=== PATIENT | male | born 1970 | race Caucasian/White ===

== ENCOUNTER 2017-04-15 19:26 | Emergency (ER) | payer MEDICAID, SELFPAY ==
[2017-04-15 19:40] VITALS: BP 142/67; PULSE 98; RESP 18; TEMP 37.9; O2SAT 100; BMI 29.0
--- NOTE | 2017-04-15 19:47 | HMH.EDUTC ---
[facility] [place] Clinical Impression: URI (upper respiratory infection) Qualifiers: URI type: unspecified URI Qualified Code(s): J06.9 - Acute upper respiratory infection, unspecified Disposition: Home, Self-Care Condition on Discharge: Good Instructions: Sore Throat, DI for Cough -- Adult, Sinusitis Additional Instructions: * Monitor Temp. Tylenol and/or Ibuprofen as needed. ER if fever is no less than 101 despite alternating Tylenol and Ibuprofen * Encourage fluids, water, Gatorade, powerade, pedialyte if infant/toddler/or child * Warm salt water gargles for throat irritation *Warm fluids *Sore throat lozenges *Sleep elevated *humidifier or vaporizer Lots of rest Increase fluids, water, Gatorade, powerade *Flonase 2 sprays each nostril daily but may take 2-3 days to notice improvement with it Follow up IMMEDIATELY for new or worsening of symptoms OR no noticeable improvement over the next 48-72 hours. 911 immediately for any life threatening symptoms such as chest pain or difficulty breathing Prescriptions: Dextromethorphan Polistirex [Delsym] 10 ml PO Q12H PRN #250 neil.er.12h PRN Reason: Cough Time of Disposition: 20:14 Medical Decision Making - Medical Records Medical records reviewed: Yes: I reviewed the patient's medical records. Vital Signs: 04/15/17 19:40 Temperature 100.2 F H Temperature Source Temporal Artery Scan Pulse Rate [Right] 98 H Respiratory Rate 18 Blood Pressure [Right Arm] 142/67 Blood Pressure Mean [Right Arm] 92 Blood Pressure Source [Right Arm] Automatic Cuff Blood Pressure Position [Right Arm] Sitting 02 Sat by Pulse Oximetry 100 Oxygen Delivery Method Room Air - Tacos Inquiry Pt receiving controlled substance: No [place] was queried for this patient: No [facility] [place] - General Stated complaint: fever,cough,kang Mode of Arrival: Ambulatory Source of Information: Patient Limitations: No Limitations Description of Symptoms (Recalled from Triage Doc. by RN): FEVER, COUGH, HEADACHE BEGAN LAST NIGHT HEENT Symptoms (Recalled from RN notes): Yes Resp Symptoms (Recalled from RN notes): No Skin Symptoms (Recalled from RN notes): No MS Symptoms (Recalled from RN notes): No Functional Status (Recalled from RN notes): N - History of Present Illness Provider Complaint: Patient state that he has not been feeling well all day State that he has been running a fever, having sinus pain and pressure along with cough and sore throat State that it has continued to get worse through out the day - Related Data Previous Rx's Medication Instructions Recorded Dextromethorphan Polistirex 10 ml PO Q12H PRN #250 neil.er.12h 04/15/17 [Delsym] Allergies Allergy/AdvReac Type Severity Reaction Status Date / Time No Known Allergies Allergy Verified 04/15/17 19:46 - Worker's Comp Is this a Worker's Comp case?: No [facility] History I have reviewed the patient's past medical history: Yes - *Social History Smoking Status: Current every day smoker Tobacco Type: cigarettes Alcohol Intake: never - Psychiatric History Expresses thoughts of harming self/others: None Suicide Plan Description: No Plan ROS Obtained: Yes All systems reviewed & no additional complaints - Constitutional Constitutional: Reports chills, Reports fever(s) - ENT Ears, Nose, Mouth, and Throat: Reports sinus pain, Reports sinus pressure, Reports sore throat Physical Exam - General General appearance: alert, in no apparent distress - Expanded ENT Exam Nose exam: Present: sinus tenderness, other (Tenderness maxillary sinus) Comment: Throat red, irritated no exudate - Respiratory Respiratory exam: Present: normal lung sounds bilaterally. Absent: respiratory distress - Cardiovascular Cardiovascular exam: Present: regular rate, normal rhythm. Absent: JVD - Abdominal Exam Abdominal exam: Present: soft, normal bowel sounds. Absent: distention, tenderness, guarding - Neurological Exam Neurological ex
[2017-04-15 19:58] LABS: UTC Influenza A Antigen Negative (Negative); UTC Influenza B Antigen Negative (Negative)
--- NOTE | 2017-04-15 20:09 | ED_ITS ---
[facility] [place] Clinical Impression: URI (upper respiratory infection) Qualifiers: URI type: unspecified URI Qualified Code(s): J06.9 - Acute upper respiratory infection, unspecified Disposition: Home, Self-Care Condition on Discharge: Good Instructions: Sore Throat, DI for Cough -- Adult, Sinusitis Additional Instructions: * Monitor Temp. Tylenol and/or Ibuprofen as needed. ER if fever is no less than 101 despite alternating Tylenol and Ibuprofen * Encourage fluids, water, Gatorade, powerade, pedialyte if infant/toddler/or child * Warm salt water gargles for throat irritation *Warm fluids *Sore throat lozenges *Sleep elevated *humidifier or vaporizer Lots of rest Increase fluids, water, Gatorade, powerade *Flonase 2 sprays each nostril daily but may take 2-3 days to notice improvement with it Follow up IMMEDIATELY for new or worsening of symptoms OR no noticeable improvement over the next 48-72 hours. 911 immediately for any life threatening symptoms such as chest pain or difficulty breathing Prescriptions: Dextromethorphan Polistirex [Delsym] 10 ml PO Q12H PRN #250 neil.er.12h PRN Reason: Cough Time of Disposition: 20:14 Medical Decision Making - Medical Records Medical records reviewed: Yes: I reviewed the patient's medical records. Vital Signs: 04/15/17 19:40 Temperature 100.2 F H Temperature Source Temporal Artery Scan Pulse Rate [Right] 98 H Respiratory Rate 18 Blood Pressure [Right Arm] 142/67 Blood Pressure Mean [Right Arm] 92 Blood Pressure Source [Right Arm] Automatic Cuff Blood Pressure Position [Right Arm] Sitting 02 Sat by Pulse Oximetry 100 Oxygen Delivery Method Room Air - [place]os Inquiry Pt receiving controlled substance: No [place]os was queried for this patient: No [facility] [place] HPI - General Stated complaint: fever,cough,kang Mode of Arrival: Ambulatory Source of Information: Patient Limitations: No Limitations Description of Symptoms (Recalled from Triage Doc. by RN): FEVER, COUGH, HEADACHE BEGAN LAST NIGHT HEENT Symptoms (Recalled from RN notes): Yes Resp Symptoms (Recalled from RN notes): No Skin Symptoms (Recalled from RN notes): No MS Symptoms (Recalled from RN notes): No Functional Status (Recalled from RN notes): N - History of Present Illness Provider Complaint: Patient state that he has not been feeling well all day State that he has been running a fever, having sinus pain and pressure along with cough and sore throat State that it has continued to get worse through out the day - Related Data Previous Rx's Medication Instructions Recorded Dextromethorphan Polistirex 10 ml PO Q12H PRN #250 neil.er.12h 04/15/17 [Delsym] Allergies Allergy/AdvReac Type Severity Reaction Status Date / Time No Known Allergies Allergy Verified 04/15/17 19:46 - Worker's Comp Is this a Worker's Comp case?: No [facility] History I have reviewed the patient's past medical history: Yes - *Social History Smoking Status: Current every day smoker Tobacco Type: cigarettes Alcohol Intake: never - Psychiatric History Expresses thoughts of harming self/others: None Suicide Plan Description: No Plan ROS Obtained: Yes All systems reviewed & no additional complaints - Constitutional Constitutional: Reports chills, Reports fever(s) - ENT Ears, Nose, Mouth, and Throat: Reports sinus pain, Report
[2017-04-15 20:21] VITALS: BP 140/70; PULSE 90; RESP 18; TEMP 37.7
== END 2017-04-15 20:29 | disposition home or self-care (01) ==
PROVIDERS: Emergency Provider Nurse Practitioner; Family Provider Internal Medicine Adolescent Medicine
DX: J06.9 Acute upper respiratory infection, unspecified (principal)
CPT/HCPCS: 87804; 96372; 99201

== ENCOUNTER → 2017-05-16 16:35 | Outpatient (CLI) | payer MEDICAID, SELFPAY ==
[2017-05-16 16:38] LABS: Microscopic, Urine URINE MICROSCOPIC (MICROSCOPIC)
--- NOTE | 2017-05-16 16:51 | XR_ITS ---
XR chest 2V HISTORY: ITS.REASON: TOBACCO USE, COUGH ORDERING PHYSICIAN: Phyllis Sanchez PATIENT AGE: 46 years COMPARISON: 02/04/2016 FINDINGS: The cardiomediastinal silhouette and pulmonary vascularity are within normal limits. The lungs are clear without infiltrates, suspicious nodules, or pleural effusions. There are bilateral apical blebs as before. Calcified granuloma is present in the right infrahilar region. No acute bony abnormalities. IMPRESSION: No change with no acute finding. 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
[2017-05-16 17:04] LABS: Appearance,Urine CLEAR (Clear); Bilirubin,Urine Negative (Negative); Blood, Urine Negative (Negative); Color,Urine YELLOW (Yellow); Glucose,Urine (UA) Negative (Negative); Ketones,Urine Negative (Negative); Leukocyte Esterase,Urine Negative (Negative); Nitrate,Urine Negative (Negative); Protein,Urine Negative (Negative); Urobilinogen,Urine 0.2 EU/dl (0.2)
[2017-05-16 17:18] LABS: Alanine Aminotransferase 70 U/L (12-78); Albumin/Globulin Ratio 1.1 (1.1-1.8); Alkaline Phosphatase 78 U/L (46-116); Anion Gap 10.1 mEq/L (5-15); Aspartate Amino Transferase 23 U/L (15-37); Bilirubin,Total 0.4 mg/dL (0.2-1.0); Blood Urea Nitrogen 17 mg/dL (7-18); Calcium 9.1 mg/dL (8.5-10.1); Carbon Dioxide 30 mmol/L (21.0-32.0); Chloride 101 mmol/L (98-107); Creatinine,Serum 1.06 mg/dL (0.70-1.30); Estimated Glomerular Filt Rate 75 ml/min (>60); GFR (African American) 91 ML/MIN (>60); Globulin 3.5 gm/dl (1.3-3.2); Glucose 100 mg/dL (74-106); Potassium 4.1 mmoL/L (3.5-5.1); Sodium 137 mmol/L (136-145); Thyroid Stimulating Hormone 2.54 uIU/ml (0.358-3.740); Total Protein,Serum 7.5 gm/dL (6.4-8.2)
[2017-05-16 18:08] LABS: Basophils # 0.1 K/mm3 (0-0.2); Basophils % 0.5 % (0.1-2.0); Eosinophils # 0.3 K/mm3 (0.0-0.4); Eosinophils % 3.3 % (0.1-12.0); Hematocrit 45.6 % (42.0-52.0); Lymphocytes # 3.1 K/mm3 (0.7-4.5); Lymphocytes % 30.9 K/mm3 (10-50); Mean Corpuscular HGB Conc 32.8 g/dL (31.8-35.4); Mean Corpuscular Hemoglobin 30.6 pg (27.0-31.2); Mean Corpuscular Volume 93.3 fl (80-94); Mean Platelet Volume 7.7 fl (7.4-10.4); Monocytes # 0.4 K/mm3 (0.1-1.0); Monocytes % 3.7 % (1.7-9.3); Neutrophils # 6.2 K/mm3 (1.8-7.8); Neutrophils % 61.6 % (37.0-80.0); Platelet Count 280 K/mm3 (142-424); Red Blood Count 4.89 M/mm3 (4.60-6.20); Red Cell Distribution Width 13.9 % (11.5-17.5); White Blood Count 10.1 K/mm3 (4.8-10.8)
[2017-05-16 19:11] LABS: Squamous Epithelial Cell,Urine Occasional #/hpf (0-5)
== END ==
PROVIDERS: PCP Nurse Practitioner Family; Visit Provider Nurse Practitioner Family
DX: R05 Cough (principal); Z72.0 Tobacco use
CPT/HCPCS: 36415; 71046; 80053; 81001; 84443; 85025

== ENCOUNTER 2017-06-03 15:27 | Emergency (ER) | payer MEDICAID, SELFPAY ==
[2017-06-03 15:42] VITALS: BP 129/87; PULSE 76; RESP 20; TEMP 36.6; O2SAT 98; BMI 29.4
--- NOTE | 2017-06-03 16:06 | HMH.EDUTC ---
[facility] [place] Disposition Clinical Impression: Cough, Tobacco abuse, Laryngitis Disposition: Home, Self-Care Condition on Discharge: Good Instructions: DI for Cough -- Adult, DI for Laryngitis Additional Instructions: * STOP SMOKING!!!! * start antibiotic today. Be sure to complete entire prescription even if feeling better. * Your symptoms are possibly viral. I understand you just had a CXR and choose not to repeat it today. An antibiotic will not make you feel better if this is a virus. Antibiotics are for bacterial infections. Viruses have to run their course with treating the symptoms. Remember that as we discussed, antibiotics do come with side effects and risk including allergic reactions and resistance. Resistance to antibiotics can cause serious complications in the future if there is no antibiotic to treat an infection you have. Carefully consider this before starting antibiotics for symptoms that are likely viral. * Encourage fluids, water, gatorade, powerade, pedialyte if /toddler/child * warm salt water gargles * warm fluids * sore throat lozenges * sleep elevated * humidifier/vaporizer * Vocal rest. Helps keep hoarse voice from getting. * Monitor Temp. Feeling feverish is NOT the same as having a fever. If fever develops, be sure to follow up. * Start steroid today. Helps with inflammation therefore, cough and inflammation. Follow directions on package. Rvwd side effects. Pt reports they have taken them before. Prescriptions: Azithromycin [Z-Freddy 250mg Tab] 250 mg PO UD DOSE PK #6 tab methylPREDNISolone [Medrol] 4 mg PO DIRECTED #1 tab.ds.pk Referrals: Michael Xie MD [Primary Care Provider] - (Follow up IMMEDIATELY for new or worsening symptoms OR no noticeable improvement over the next 72 hours. 911 for difficulty breathing.) Time of Disposition: 16:33 Medical Decision Making - [place]os Inquiry Pt receiving controlled substance: No Vital Signs: 06/03/17 15:42 06/03/17 16:28 Temperature 97.9 F 97.9 F Temperature Source Temporal Artery Scan Pulse Rate 76 Pulse Rate [Brachial] 76 Respiratory Rate 20 20 Blood Pressure 129/87 Blood Pressure [Right Arm] 129/87 Blood Pressure Mean [Right Arm] 101 Blood Pressure Source [Right Arm] Automatic Cuff Blood Pressure Position [Right Arm] Sitting 02 Sat by Pulse Oximetry 98 Oxygen Delivery Method Room Air Room Air - Reevaluation(s) Reevaluation #1: Discussed CXR. Pt refused. 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 Aware necessary to rule out early onset PNA. Pt wanting zpack and steroid regardless of CXR results. Declining CXR today but agrees to follow up for new or worsening symptoms. [facility] [place] HPI - General Stated complaint: SORE THROAT Time Seen by Provider: 06/03/17 16:06 Mode of Arrival: Ambulatory Source of Information: Patient Limitations: No Limitations Description of Symptoms (Recalled from Triage Doc. by RN): SORE THROAT AND HOARSENESS FOR THE LAST 2-3 DAYS. HEENT Symptoms (Recalled from RN notes): Yes Resp Symptoms (Recalled from RN notes): No Skin Symptoms (Recalled from RN notes): No MS Symptoms (Recalled from RN notes): No Functional Status (Recalled from RN notes): NA - History of Present Illness Provider Complaint: c/o sore throat, hoarse voice and cough. Started with cough 2 weeks ago. + tobacco abuse 2ppd. No wheezing or SOA. Sore throat and hoarse voice last 2-3 days. Hard to talk on radio at work due to hoarse voice. No known sick contacts. Hasn't taken or tried anything for symptoms. Has had this before and wanting steroid injection and zpack. - Related Data Previous Rx's Medication Instructions Recorded Azithromycin [Z-Ferddy 250mg Tab] 250 mg PO UD DOSE PK #6 tab 06/03/17 methylPREDNISolone [Medrol] 4 mg PO DIRECTED #1 tab.ds.pk 06/03/17 Allergies Allergy/AdvReac Type Severity Reaction Status Date / Time No Known Allergies Allergy Verified 04/15/17 19:46 - Worker's Comp Is this a Worke
[2017-06-03 16:28] VITALS: BP 129/87; PULSE 76; RESP 20; TEMP 36.6; O2SAT 98
== END 2017-06-03 16:34 | disposition home or self-care (01) ==
PROVIDERS: Emergency Provider Nurse Practitioner Family; Family Provider Internal Medicine Adolescent Medicine; PCP Internal Medicine Adolescent Medicine
DX: J04.0 Acute laryngitis (principal); F17.210 Nicotine dependence, cigarettes, uncomplicated
CPT/HCPCS: 99201

== ENCOUNTER → 2021-06-03 11:06 | Outpatient (CLI) | payer SELFPAY | PROVIDERS: PCP Internal Medicine Adolescent Medicine; Visit Provider Nurse Practitioner Family | DX: Z02.4 Encounter for examination for driving license (principal) ==

== ENCOUNTER 2022-08-22 11:43 | Emergency (ER) | payer OTHER, SELFPAY ==
[2022-08-22 11:50] VITALS: BP 129/77; PULSE 76; RESP 18; TEMP 36.7; O2SAT 98; BMI 27.2
--- NOTE | 2022-08-22 12:07 | EXP.UTC ---
Discharge Plan Disposition Patient Disposition: Home, Self-Care Condition: Good Prescriptions Prescriptions: New azithromycin [Zithromax Z-Freddy] 250 mg tablet See Rx Instructions .ROUTE .COMPLEX 5 Days Qty: 6 0RF Rx Instructions: For 250 mg dose pack: take 500 mg today (day 1), then 250 mg for 4 days (days 2-5) benzonatate 100 mg capsule 100 mg PO TID PRN (Reason: cough) Qty: 30 0RF methylprednisolone [Medrol (Freddy)] 4 mg tablets,dose pack See Rx Instructions .Route .COMPLEX 6 Days Qty: 21 0RF Rx Instructions: taper pack; guaifenesin [Mucinex] 600 mg tablet extended release 12hr 1,200 mg PO BID PRN (Reason: cough) Qty: 20 0RF Referrals Follow up/Referrals: Michael Xie MD [Primary Care Provider] - See instructions Activity Restrictions/Add. Instructions Additional Instructions/Restrictions: Start antibiotic today. Be sure to complete entire prescription even if feeling better Monitor temp. Tylenol every 4 hours as needed and / or ibuprofen every 6 hours as needed ( As long as your primary care physician has told you that it ok to take both. For fever/aches/pains ER if no less than 101 despite Tylenol or Motrin Humidifier/vaporizer or hot steamy shower Mucinex during the day for your cough and cough suppressant only at night. Be sure to drink lots of water. *Tessalon Perles will not cause drowsiness but use at bedtime to help stop cough so that you may get some rest. *Start steroid tomorrow. Helps with inflammation therefore, cough and wheezing. Follow directions on the package. Reviewed side effects. Patient reports taking them before. Follow up IMMEDIATELY for new or worsening of symptoms OR no noticeable improvement over the next 48-72 hours. 911 immediately for any life threatening symptoms such as chest pain or difficulty breathing Clinical Impressions Clinical Impression: Bronchitis Sinusitis Qualifiers: Sinusitis location: unspecified location Chronicity: unspecified Qualified Code(s): J32.9 - Chronic sinusitis, unspecified Instructions Patient Instructions: Sinusitis, Acute Bronchitis, DI for Sinusitis Discharge ED Provider: Misa Lang [facility] General Stated complaint: cough, sore throat Mode of Arrival: Ambulatory Source of Information: Patient Limitations: No Limitations Time Seen by Provider: 08/22/22 11:55 Description of Symptoms (Recalled from Triage Doc. by RN): PATIENT C/O PRODUCTIVE COUGH, SCRATCHY THROAT, AND CHEST CONGESTION X 2 DAYS HEENT Symptoms (Recalled from RN notes): Yes Resp Symptoms (Recalled from RN notes): Yes Skin Symptoms (Recalled from RN notes): No MS Symptoms (Recalled from RN notes): No Functional Status (Recalled from RN notes): WNL History of Present Illness Provider Complaint: Patient states that he has been having sore throat, sinus drainage, cough and chest congestion for several days that is getting worse States that at times he will cough up some mucous and he wanted to come in and get treated before it got too bad Related Data Previous Rx's Medication Instructions Recorded azithromycin 250 mg tablet See Rx Instructions PO .COMPLEX 5 08/22/22 (Zithromax Z-Freddy) days #6 tabs benzonatate 100 mg capsule 100 mg PO TID PRN cough #30 caps 08/22/22 guaifenesin 600 mg tablet, 1,200 mg PO BID PRN cough #20 tabs 08/22/22 extended release 12 hr (Mucinex) methylprednisolone 4 mg tablets in See Rx Instructions .Route 08/22/22 a dose pack (Medrol (Freddy)) .COMPLEX 6 days #21 tabs Allergies Allergy/AdvReac Type Severity Reaction Status Date / Time No Known Allergies Allergy Verified 06/04/19 10:17 Worker's Comp Is this a Worker's Comp case?: No [facility] Disclaimer: The information contained in this section may have been updated after the patient was seen, as this information can be updated by other users. Social History Smoking Status: Current every day smoker tobacco type
[2022-08-22 12:18] VITALS: BP 129/77; PULSE 76; RESP 18; TEMP 36.7; O2SAT 98
== END 2022-08-22 12:26 | disposition home or self-care (01) ==
PROVIDERS: Emergency Provider Nurse Practitioner; PCP Internal Medicine Adolescent Medicine
DX: J40 Bronchitis, not specified as acute or chronic (principal); J32.9 Chronic sinusitis, unspecified; F17.210 Nicotine dependence, cigarettes, uncomplicated
CPT/HCPCS: 96372; 99204; 99212; G0463; J0696

== ENCOUNTER 2022-11-04 08:24 | Emergency (ER) | payer OTHER, SELFPAY ==
[2022-11-04 08:25] VITALS: BP 139/71; PULSE 85; RESP 20; TEMP 37.1; O2SAT 98; BMI 32.4
--- NOTE | 2022-11-04 08:46 | EXP.UTC ---
Discharge Plan Disposition Patient Disposition: Home, Self-Care Condition: Good Prescriptions Prescriptions: New benzonatate [benzonatate] 100 mg capsule 100 mg PO TIDP PRN (Reason: Cough) Qty: 30 0RF methylprednisolone 4 mg Tablets,Dose Pack 4 mg PO DIRECTED Qty: 21 0RF albuterol sulfate [Ventolin HFA] 90 mcg/actuation HFA aerosol inhaler 2 puff inhalation Q6H PRN (Reason: shortness of breath or wheezing) Qty: 6.7 0RF amoxicillin-pot clavulanate 875-125 mg Tablet 1 tab PO Q12H Qty: 20 0RF No Action azithromycin [Zithromax Z-Freddy] 250 mg tablet See Rx Instructions .ROUTE .COMPLEX 5 Days Qty: 6 0RF Rx Instructions: For 250 mg dose pack: take 500 mg today (day 1), then 250 mg for 4 days (days 2-5) benzonatate 100 mg capsule 100 mg PO TID PRN (Reason: cough) Qty: 30 0RF methylprednisolone [Medrol (Freddy)] 4 mg tablets,dose pack See Rx Instructions .Route .COMPLEX 6 Days Qty: 21 0RF Rx Instructions: taper pack; guaifenesin [Mucinex] 600 mg tablet extended release 12hr 1,200 mg PO BID PRN (Reason: cough) Qty: 20 0RF Referrals Follow up/Referrals: Michael Xie MD [Primary Care Provider] - See instructions Activity Restrictions/Add. Instructions Additional Instructions/Restrictions: Drink plenty of fluids. Take tylenol or ibuprofen for pain or fever. Take the medications as directed. Follow up with your regular doctor. GO TO THE ER FOR ANY WORSENING SYMPTOMS Don't start the oral steroids until tomorrow, since you had the shot here today. Clinical Impressions Clinical Impression: Bronchitis, Sinusitis Instructions Patient Instructions: DI for Sinusitis, DI for Acute Bronchitis Discharge ED Provider: Silver Carreon [facility] General Stated complaint: cough,congestion Mode of Arrival: Ambulatory Source of Information: Patient Limitations: No Limitations Time Seen by Provider: 11/04/22 08:45 HEENT Symptoms (Recalled from RN notes): Yes Resp Symptoms (Recalled from RN notes): No Skin Symptoms (Recalled from RN notes): No MS Symptoms (Recalled from RN notes): No Functional Status (Recalled from RN notes): wnl History of Present Illness Provider Complaint: Patient reports cough, congestion and sore throat for 3 days. Related Data Previous Rx's Medication Instructions Recorded azithromycin 250 mg tablet See Rx Instructions PO .COMPLEX 5 08/22/22 (Zithromax Z-Freddy) days #6 tabs benzonatate 100 mg capsule 100 mg PO TID PRN cough #30 caps 08/22/22 guaifenesin 600 mg tablet, 1,200 mg PO BID PRN cough #20 tabs 08/22/22 extended release 12 hr (Mucinex) methylprednisolone 4 mg tablets in See Rx Instructions .Route 08/22/22 a dose pack (Medrol (Freddy)) .COMPLEX 6 days #21 tabs albuterol sulfate 90 mcg/actuation 2 puff inhalation Q6H PRN 11/04/22 aerosol inhaler (Ventolin HFA) shortness of breath or wheezing #6.7 grams amoxicillin 875 mg-potassium 1 tab PO Q12H #20 tabs 11/04/22 clavulanate 125 mg tablet benzonatate 100 mg capsule 100 mg PO TIDP PRN Cough #30 caps 11/04/22 methylprednisolone 4 mg tablets in 4 mg PO DIRECTED #21 tabs 11/04/22 a dose pack Allergies Allergy/AdvReac Type Severity Reaction Status Date / Time No Known Allergies Allergy Verified 06/04/19 10:17 Worker's Comp Is this a Worker's Comp case?: No [facility] Disclaimer: The information contained in this section may have been updated after the patient was seen, as this information can be updated by other users. Social History Smoking Status: Current every day smoker tobacco type: cigarettes packs per day: 2 alcohol intake: current substance use type: denies use current occupational status: employed and other Travel in the last 8 weeks: Inside the [place] ROS Obtained: Yes All systems reviewed & no additional complaints except as documented Constitutional Constitutional: Reports poor appetite Eyes Eyes: Reports system reviewed
[2022-11-04 09:10] VITALS: BP 139/71; PULSE 85; RESP 20; TEMP 37.1; O2SAT 98
== END 2022-11-04 09:11 | disposition home or self-care (01) ==
PROVIDERS: Emergency Provider Nurse Practitioner Family; PCP Internal Medicine Adolescent Medicine
DX: J20.9 Acute bronchitis, unspecified (principal); J01.90 Acute sinusitis, unspecified; F17.210 Nicotine dependence, cigarettes, uncomplicated
CPT/HCPCS: 96372; 99212; 99214; G0463; J0696

== ENCOUNTER 2022-12-20 10:13 | Emergency (ER) | payer OTHER, SELFPAY ==
[2022-12-20 10:14] VITALS: BP 165/61; PULSE 114; RESP 18; TEMP 36.8; O2SAT 98; BMI 28.8
--- NOTE | 2022-12-20 10:33 | EXP.UTC ---
Discharge Plan Disposition Patient Disposition: Home, Self-Care Condition: Good Prescriptions Prescriptions: New cephalexin 500 mg capsule 500 mg PO QID Qty: 40 0RF mupirocin 2 % ointment 1 applic topical TID 7 Days Qty: 15 0RF No Action azithromycin [Zithromax Z-Freddy] 250 mg tablet See Rx Instructions .ROUTE .COMPLEX 5 Days Qty: 6 0RF Rx Instructions: For 250 mg dose pack: take 500 mg today (day 1), then 250 mg for 4 days (days 2-5) benzonatate 100 mg capsule 100 mg PO TID PRN (Reason: cough) Qty: 30 0RF methylprednisolone [Medrol (Freddy)] 4 mg tablets,dose pack See Rx Instructions .Route .COMPLEX 6 Days Qty: 21 0RF Rx Instructions: taper pack; guaifenesin [Mucinex] 600 mg tablet extended release 12hr 1,200 mg PO BID PRN (Reason: cough) Qty: 20 0RF benzonatate [benzonatate] 100 mg capsule 100 mg PO TIDP PRN (Reason: Cough) Qty: 30 0RF methylprednisolone 4 mg Tablets,Dose Pack 4 mg PO DIRECTED Qty: 21 0RF albuterol sulfate [Ventolin HFA] 90 mcg/actuation HFA aerosol inhaler 2 puff inhalation Q6H PRN (Reason: shortness of breath or wheezing) Qty: 6.7 0RF amoxicillin-pot clavulanate 875-125 mg Tablet 1 tab PO Q12H Qty: 20 0RF Referrals Follow up/Referrals: Michael Xie MD [Primary Care Provider] - See instructions Israel Fields MD [Staff Physician] - See instructions Activity Restrictions/Add. Instructions Additional Instructions/Restrictions: Keep the wound clean and dry. Soak in a tub of warm water at least once per day. Watch the wound for signs of infection, such as redness, swelling, drainage, fever. etc. Take tylenol or ibuprofen for pain. Follow up with your regular doctor. Follow up with the urologist (Dr. Fields). I put in a referral but you need to call his office and schedule an appointment. His office phone number will be on this paperwork. GO TO THE ER FOR ANY WORSENING SYMPTOMS OR CONCERNS. recommend you abstain from sexual intercourse until this has healed. Clinical Impressions Clinical Impression: Laceration without foreign body of penis, initial encounter Instructions Patient Instructions: DI for Avulsion Laceration (Not Requiring Sutures), Cephalexin, Mupirocin Discharge ED Provider: Silver Carreon [facility] [place] HPI General Stated complaint: congestion Time Seen by Provider: 12/20/22 10:33 History of Present Illness Provider Complaint: He states that around 10 days ago he was having sex with an area on his foreskin tore. He had bleeding and pain at that time. Since then, he has continued to have sex with his and he states that he has irritated the injury. Related Data Previous Rx's Medication Instructions Recorded azithromycin 250 mg tablet See Rx Instructions PO .COMPLEX 5 08/22/22 (Zithromax Z-Freddy) days #6 tabs benzonatate 100 mg capsule 100 mg PO TID PRN cough #30 caps 08/22/22 guaifenesin 600 mg tablet, 1,200 mg PO BID PRN cough #20 tabs 08/22/22 extended release 12 hr (Mucinex) methylprednisolone 4 mg tablets in See Rx Instructions .Route 08/22/22 a dose pack (Medrol (Freddy)) .COMPLEX 6 days #21 tabs albuterol sulfate 90 mcg/actuation 2 puff inhalation Q6H PRN 11/04/22 aerosol inhaler (Ventolin HFA) shortness of breath or wheezing #6.7 grams amoxicillin 875 mg-potassium 1 tab PO Q12H #20 tabs 11/04/22 clavulanate 125 mg tablet benzonatate 100 mg capsule 100 mg PO TIDP PRN Cough #30 caps 11/04/22 methylprednisolone 4 mg tablets in 4 mg PO DIRECTED #21 tabs 11/04/22 a dose pack cephalexin 500 mg capsule 500 mg PO QID #40 caps 12/20/22 mupirocin 2 % topical ointment 1 applic topical TID 7 days #15 12/20/22 grams Allergies Allergy/AdvReac Type Severity Reaction Status Date / Time No Known Allergies Allergy Verified 12/20/22 10:52 [facility] Disclaimer: The information contained in this section may have been updated after the patient was seen, as this information c
[2022-12-20 11:15] VITALS: BP 165/61; PULSE 114; RESP 18; TEMP 36.8; O2SAT 98
== END 2022-12-20 11:15 | disposition home or self-care (01) ==
PROVIDERS: Emergency Provider Nurse Practitioner Family; PCP Internal Medicine Adolescent Medicine
DX: S31.21XA Laceration without foreign body of penis, initial encounter (principal); F17.210 Nicotine dependence, cigarettes, uncomplicated; X50.0XXA Overexertion from strenuous movement or load, initial encounter
CPT/HCPCS: 99212; 99214; G0463

== ENCOUNTER 2023-05-31 12:39 | Outpatient (CLI) | payer SELFPAY | END 2023-05-31 13:23 | disposition home or self-care (01) | PROVIDERS: PCP Nurse Practitioner Family; Visit Provider Nurse Practitioner Family | DX: Z02.4 Encounter for examination for driving license (principal) ==

== ENCOUNTER 2023-12-28 22:02 | Emergency (ER) | payer OTHER, SELFPAY ==
[2023-12-28 22:02] VITALS: BP 108/70; PULSE 90; RESP 20; TEMP 37.2; O2SAT 95; BMI 27.7
--- NOTE | 2023-12-28 22:11 | CT_ITS ---
PROCEDURE INFORMATION: Exam: CT Head Without Contrast Exam date and time: 12/28/2023 10:44 PM Age: 53 years old Clinical indication: Pain; Headache; Prior surgery; Surgery date: <1 month; Surgery type: Patient states he had a tumor removed from brain 2 weeks ago TECHNIQUE: Imaging protocol: Computed tomography of the head without contrast. Radiation optimization: All CT scans at this facility use at least one of these dose optimization techniques: automated exposure control; mA and/or kV adjustment per patient size (includes targeted exams where dose is matched to clinical indication); or iterative reconstruction. COMPARISON: No relevant prior studies available. FINDINGS: Brain: Normal. No hemorrhage. Unremarkable white matter. No mass effect. A 2.5 x 1.9 x 2.3 cm CSF density collection noted in the posteroinferior medial left cerebellum just under the craniotomy site compatible with resection cavity. Associated mild edema of the adjacent central left cerebellum. Cerebral ventricles: No ventriculomegaly. Paranasal sinuses: Visualized sinuses are unremarkable. No fluid levels. Mastoid air cells: Visualized mastoid air cells are well aerated. Bones: A midline suboccipital craniotomy noted. Soft tissues: Unremarkable. IMPRESSION: 1. Postsurgical changes with suboccipital craniotomy and resection cavity of the inferior medial left cerebellum. Associated mild edema in the left cerebellum may be related to the recent surgery and/or residual from the recently excised tumor. 2. No other acute findings.
--- NOTE | 2023-12-28 22:20 | HMH.EDGENADL ---
Discharge Plan Disposition Patient Disposition: Home, Self-Care Prescriptions Prescriptions: New promethazine 25 mg tablet 25 mg PO Q6H PRN (Reason: nausea and vomiting) Qty: 20 0RF No Action buspirone 10 mg tablet 10 mg PO BID Qty: 60 2RF vilazodone 40 mg tablet See Rx Instructions .ROUTE .COMPLEX Qty: 30 3RF Dose Instruction: Take 1 tablet by mouth once daily with food Rx Instructions: Take 1 tablet by mouth once daily with food albuterol sulfate [Ventolin HFA] 90 mcg/actuation HFA aerosol inhaler 2 puff inhalation Q6H PRN (Reason: shortness of breath or wheezing) Qty: 6.7 0RF dexamethasone 2 mg tablet 2 mg PO DIRECTED pantoprazole 40 mg tablet,delayed release (DR/EC) 40 mg PO DAILY nicotine 21 mg/24 hr patch 24 hour 21 mg transdermal DAILY bisacodyl 5 mg tablet,delayed release (DR/EC) 5 mg PO DAILY polyethylene glycol 3350 17 gram/dose powder 17 g PO DAILY scopolamine base 1 mg over 3 days patch 3 day 1 mg transdermal Q3D ondansetron 4 mg tablet,disintegrating 4 mg translingual Q6HP PRN (Reason: Nausea And Vomiting) oxycodone 5 mg tablet 5 mg PO Q6HP PRN (Reason: Pain) vilazodone 40 mg tablet 40 mg PO DAILY Referrals Follow up/Referrals: Provider,Referral, MD [Referring] - See instructions Activity Restrictions/Add. Instructions Additional Instructions/Restrictions: Please organize all of your medications into a daily pill dispenser and take them every day as prescribed. I wrote you additional Phenergan to take as needed for nausea. Please follow-up with your primary care provider. Please return to the emergency department if you develop any new or worsening symptoms or become concerned for your health. Clinical Impressions Clinical Impression: Headache, Nausea & vomiting Instructions Patient Instructions: DI for Diarrhea and Traveler's Diarrhea -- Adult, DI for Nausea -- Adult, DI for Headache Print Language Print Language: [place] Citizen Discharge ED Provider: Abdirizak Chavis General Adult HPI <Marge Ferrell (ED), SCIENTIFIC SPECIALIST - Last Filed: 12/28/23 22:27> General Chief complaint: Nausea/Vomiting/Diarrhea Stated complaint: Abdominal Pain Time Seen by Provider: 12/28/23 22:10 History of Present Illness HPI narrative: This is 53-year-old male who arrives to the ED via EMS from [place] [facility]. Patient with complaint of nausea, vomiting and headache since this morning. He had brain surgery approximately 2 weeks ago at . Patient was diagnosed with right upper lobe mass with mets to his brain. He had a left craniotomy at . He got out yesterday. He was reportedly placed on [facility] records still vomiting with coffee-ground emesis and having continuous nausea and vomiting but insisted upon going home. GI was consulted at . Patient told staff that he was unaware that he had pain meds or nausea meds at home. The medic on scene who picked him up from [facility] reported that patient had a gun on scene and he and his family were argumentative at the least. Family is reportedly upset with patient and not coming to the hospital. Patient has told EMS staff that he is not returning to for any recent ever again. Patient denies pain anywhere other than his head. He is having nausea and vomiting. Related Data Home Medications ?Medication ?Instructions ?Recorded ?Confirmed bisacodyl 5 mg tablet,delayed 5 mg PO DAILY 12/29/23 12/29/23 release dexamethasone 2 mg tablet 2 mg PO DIRECTED 12/29/23 12/29/23 nicotine 21 mg/24 hr daily 21 mg transdermal DAILY 12/29/23 12/29/23 transdermal patch ondansetron 4 mg disintegrating 4 mg translingual Q6HP PRN Nausea 12/29/23 12/29/23 tablet And Vomiting oxycodone 5 mg tablet 5 mg PO Q6HP PRN Pain 12/29/23 12/29/23 pantoprazole 40 mg tablet,delayed 40 mg PO DAILY gi 12/29/23 12/29/23 release polyethylene glycol 3350 17 17 g PO DAILY 12/29/23 12/29/23 gram/dose oral powder scopolamine base 1 mg over 3 days 1 mg transdermal Q3D 12/29/23 12/29/23 transdermal patch vilazodone 40 mg tablet 40 mg PO DAILY 12/29/23 12/29/23 Previous Rx's ?Medication ?Instructions ?Recorded albuterol sulfate 90 mcg/actuation 2 puff inhalation Q6H PRN 11/04/22 aerosol inhaler (Ventolin HFA) shortness of breath or wheezing #6.7 grams vilazodone 40 mg tablet See Rx Instructions .Route 10/10/23 .COMPLEX #30 tabs buspirone 10 mg tablet 10 mg PO BID #60 tabs 10/25/23 promethazine 25 mg tablet 25 mg PO Q6H PRN nausea and 12/29/23 vomiting #20 tabs Allergies Allergy/AdvReac Type Severity Reaction Status Date / Time No Known Allergies Allergy Verified 11/10/23 14:04 PFSH <Marge Ferrell (ED), SCIENTIFIC SPECIALIST - Last Filed: 12/28/23 22:27> PFSH Disclaimer: The information contained in this section may have been updated after the patient was seen, as this information can be updated by other users. Medical History (Updated 12/29/23 @ 00:16 by Abdirizak Chavis MD) Major depressive disorder Generalized anxiety disorder Surgical History (Updated 04/11/23 @ 13:30 by Araseli William APRN) History of appendectomy Social History (Updated 04/11/23 @ 13:29 by Araseli William APRN) Smoking Status: Never smoker second hand exposure: No alcohol intake: never counseling given: No substance use type: denies use counseling given: No current occupational status: employed and other Travel in the last 8 weeks: Inside the [facility] adopted: No caregiver/support person: Yes foster care: No household members: children housing: house lives independently: Yes marital status: legally number of children: 3 number of grandchildren: 0 education level: high school Hx Recent Travel: No sexually active: Yes caffeine: Yes physical activity: none working smoke detector in home: Yes fire extinguisher in home: Yes carbon monox detector in home: Yes firearms in home: Yes firearms unloaded and locked: Yes do you feel safe at home: Yes victim of physical abuse: No victim of emotional abuse: No victim of sexual abuse: No would you like helpful sources: No Other Medical History Have you received the Flu Vaccine for this season: No Have you received the Pneumonia Vaccine: No <Marge Ferrell (ED), SCIENTIFIC SPECIALIST - Last Filed: 12/28/23 22:27> ROS Obtained: Yes Systems reviewed as appropriate & no additional complaints except as documented Constitutional Constitutional: Reports as per HPI Physical Exam <Marge Ferrell (ED), SCIENTIFIC SPECIALIST - Last Filed: 12/28/23 22:27> General General appearance: alert, anxious and in distress (Nauseous with headache) Head Head exam: other (Patient has mohit present in the back of his head from his brain surgery) Eye Eye exam: Present normal appearance, PERRL and EOMI ENT ENT exam: Present normal oropharynx and mucous membranes moist Neck Neck exam: Present trachea midline Respiratory Respiratory exam: Present normal lung sounds bilaterally Cardiovascular Cardiovascular exam: Present regular rate, tachycardia, normal heart sounds, +S1 and +S2 Abdominal Exam Abdominal exam: Present soft and normal bowel sounds Abdominal tenderness: Present epigastrium Extremities Exam Extremities exam: Present normal inspection, full ROM and normal capillary refill Neurological Exam Neurological exam: Present oriented X3 Psychiatric Psychiatric exam: Present normal affect Skin Skin exam: Present warm, dry and intact Medical Decision Making <Marge Ferrell (ED), SCIENTIFIC SPECIALIST - Last Filed: 12/28/23 22:27> Medical Records Screening: Per USPSTF and CDC recommendations, given the prevalence of disease in our region, it is our hospital?s policy to screen for HIV and viral Hepatitis for all patients aged 18 and over and those with ongoing risk factors. Vital Signs: 12/28/23 22:02 12/28/23 23:04 12/29/23 00:17 Temperature 99.0 F 98.8 F Temperature Source Oral Oral Pulse Rate 70 72 Pulse Rate [Right] 90 Respiratory Rate 20 18 Blood Pressure 111/50 L 115/59 L Blood Pressure [Left Arm] 108/70 L Blood Pressure Mean 80 Blood Pressure Mean [Left Arm] 82 Blood Pressure Source [Left Arm] Automatic Cuff 02 Sat by Pulse Oximetry 95 95 Oxygen Delivery Method Room Air Room Air Room Air Lab Data Lab Results 12/28/23 22:05: WBC 20.6 H*, RBC 5.98, Hgb 16.6, Hct 49.8, MCV 83.2, MCH 27.8, MCHC 33.4, RDW 15.6, Plt Count 347, MPV 7.5, Neut % (Auto) 74.5, Lymph % (Auto) 18.8, Sevier % (Auto) 5.3, Eos % (Auto) 0.5, Baso % (Auto) 0.8, Neut # (Auto) 15.3 H, Lymph # (Auto) 3.9, Sevier # (Auto) 1.1 H, Eos # (Auto) 0.1, Baso # (Auto) 0.2, Total Counted 100, Neutrophils % (Manual) 73, Lymphocytes % (Manual) 19, Monocytes % (Manual) 7, Eosinophils % (Manual) 1, Platelet Estimate Normal, Microcytosis 2+, PT 11.3, INR 1.01, APTT 22.6 L, Sodium 136, Potassium 3.8, Chloride 103, Carbon Dioxide 26, Anion Gap 10.8, BUN 26 H, Creatinine 1.00, Estimated GFR 78, Est GFR ( Amer) 95, Glucose 98, Calcium 9.2, Magnesium 1.9, Total Bilirubin 1.1, AST 46, ALT 50, Alkaline Phosphatase 45, Total Protein 6.7, Albumin 3.9, Globulin 2.8, Albumin/Globulin Ratio 1.4 12/28/23 22:05 12/28/23 22:05 Orders (Tests/Meds): ED MEDICATIONS Discontinued Medications Generic Name Dose Route Start Last Admin Trade Name Freq PRN Reason Stop Dose Admin Acetaminophen 1,000 mg 12/28/23 23:02 12/28/23 23:14 Acetaminophen 1,000mg/100ml Vial IV 12/28/23 23:03 1,000 mg ONCE ONE Administration Ketorolac Tromethamine 30 mg 12/28/23 23:02 12/28/23 23:14 Ketorolac 30mg/Ml Vial IV 12/28/23 23:03 30 mg ONCE ONE Administration Pantoprazole Sodium 40 mg 12/28/23 22:19 12/28/23 22:44 Pantoprazole 40mg Vial IV 12/28/23 22:20 40 mg ONCE ONE Administration Promethazine HCl 25 mg 12/28/23 22:16 12/28/23 22:44 Promethazine Hcl 25mg/Ml 1ml Vial IV 12/28/23 22:17 25 mg ONCE ONE Administration Sodium Chloride 25 ml 12/28/23 22:16 12/28/23 22:44 Sodium Chloride 0.9% 25ml Bag IV 12/28/23 22:17 25 ml ONCE ONE Administration Sodium Chloride 10 ml 12/28/23 22:19 12/28/23 22:44 Sodium Chloride 0.9% 10ml Vial IV 01/27/24 22:18 10 ml NEEDED PRN Administration dilute protonix ORDERS Category Date Time Status CT head/brain wo con Stat Cat Scan 12/28/23 22:11 Completed Activated Partial Thrombo Time Stat Lab 12/28/23 22:05 Completed CBC w/Auto Diff [Complete Blood Count Auto Diff] Stat Lab 12/28/23 22:05 Completed Comprehensive Metabolic Panel Stat Lab 12/28/23 22:05 Completed Drug Screen,Urine Stat Lab 12/28/23 22:14 Ordered HIV (1&2) Antibody Rapid Stat Lab 12/28/23 22:05 Received Hep C Ab with Reflex to RNA Stat Lab 12/28/23 22:05 Received Lactic Acid Stat Lab 12/28/23 22:11 Ordered Magnesium Stat Lab 12/28/23 22:05 Completed Prothrombin Time INR Stat Lab 12/28/23 22:05 Completed ECG Request Stat Y 12/28/23 22:14 Ordered <Fredy Hazel MD - Last Filed: 12/28/23 23:40> [place] Inquiry Pt receiving controlled substance: No Vital Signs: 12/28/23 22:02 12/28/23 23:04 12/29/23 00:17 Temperature 99.0 F 98.8 F Temperature Source Oral Oral Pulse Rate 70 72 Pulse Rate [Right] 90 Respiratory Rate 20 18 Blood Pressure 111/50 L 115/59 L Blood Pressure [Left Arm] 108/70 L Blood Pressure Mean 80 Blood Pressure Mean [Left Arm] 82 Blood Pressure Source [Left Arm] Automatic Cuff 02 Sat by Pulse Oximetry 95 95 Oxygen Delivery Method Room Air Room Air Room Air Lab Data Lab Results 12/28/23 22:05: WBC 20.6 H*, RBC 5.98, Hgb 16.6, Hct 49.8, MCV 83.2, MCH 27.8, MCHC 33.4, RDW 15.6, Plt Count 347, MPV 7.5, Neut % (Auto) 74.5, Lymph % (Auto) 18.8, Sevier % (Auto) 5.3, Eos % (Auto) 0.5, Baso % (Auto) 0.8, Neut # (Auto) 15.3 H, Lymph # (Auto) 3.9, Sevier # (Auto) 1.1 H, Eos # (Auto) 0.1, Baso # (Auto) 0.2, Total Counted 100, Neutrophils % (Manual) 73, Lymphocytes % (Manual) 19, Monocytes % (Manual) 7, Eosinophils % (Manual) 1, Platelet Estimate Normal, Microcytosis 2+, PT 11.3, INR 1.01, APTT 22.6 L, Sodium 136, Potassium 3.8, Chloride 103, Carbon Dioxide 26, Anion Gap 10.8, BUN 26 H, Creatinine 1.00, Estimated GFR 78, Est GFR ( Amer) 95, Glucose 98, Calcium 9.2, Magnesium 1.9, Total Bilirubin 1.1, AST 46, ALT 50, Alkaline Phosphatase 45, Total Protein 6.7, Albumin 3.9, Globulin 2.8, Albumin/Globulin Ratio 1.4 Orders (Tests/Meds): ED MEDICATIONS Discontinued Medications Generic Name Dose Route Start Last Admin Trade Name Freq PRN Reason Stop Dose Admin Acetaminophen 1,000 mg 12/28/23 23:02 12/28/23 23:14 Acetaminophen 1,000mg/100ml Vial IV 12/28/23 23:03 1,000 mg ONCE ONE Administration Ketorolac Tromethamine 30 mg 12/28/23 23:02 12/28/23 23:14 Ketorolac 30mg/Ml Vial IV 12/28/23 23:03 30 mg ONCE ONE Administration Pantoprazole Sodium 40 mg 12/28/23 22:19 12/28/23 22:44 Pantoprazole 40mg Vial IV 12/28/23 22:20 40 mg ONCE ONE Administration Promethazine HCl 25 mg 12/28/23 22:16 12/28/23 22:44 Promethazine Hcl 25mg/Ml 1ml Vial IV 12/28/23 22:17 25 mg ONCE ONE Administration Sodium Chloride 25 ml 12/28/23 22:16 12/28/23 22:44 Sodium Chloride 0.9% 25ml Bag IV 12/28/23 22:17 25 ml ONCE ONE Administration Sodium Chloride 10 ml 12/28/23 22:19 12/28/23 22:44 Sodium Chloride 0.9% 10ml Vial IV 01/27/24 22:18 10 ml NEEDED PRN Administration dilute protonix ORDERS Category Date Time Status CT head/brain wo con Stat Cat Scan 12/28/23 22:11 Completed Activated Partial Thrombo Time Stat Lab 12/28/23 22:05 Completed CBC w/Auto Diff [Complete Blood Count Auto Diff] Stat Lab 12/28/23 22:05 Completed Comprehensive Metabolic Panel Stat Lab 12/28/23 22:05 Completed Drug Screen,Urine Stat Lab 12/28/23 22:14 Ordered HIV (1&2) Antibody Rapid Stat Lab 12/28/23 22:05 Received Hep C Ab with Reflex to RNA Stat Lab 12/28/23 22:05 Received Lactic Acid Stat Lab 12/28/23 22:11 Ordered Magnesium Stat Lab 12/28/23 22:05 Completed Prothrombin Time INR Stat Lab 12/28/23 22:05 Completed ECG Request Stat Y 12/28/23 22:14 Ordered Medical Decision Narrative: Sam Titus is a 53-year-old male with a 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 Per EMS, patient was agitated with family and had a gun on scene. They stated that patient was not agitated and route and patient is calm on arrival. On arrival, patient is hemodynamically stable, afebrile, breathing comfortably on room air. Patient is alert and oriented, although intermittently seems mildly confused. He is complaining of nausea and vomiting. Discharge summary from was reviewed and patient was discharged yesterday after being persistent that he wanted to go home, however he was still receiving IV pain medications at that time due to uncontrolled pain. He was also continued to have nausea and vomiting according to the note. He was sent home with oxycodone and Zofran. Patient also recently finished a steroid taper. Patient noted to's be starting chemotherapy/radiation 2 weeks after his surgery. Differential diagnosis includes: Electrolyte derangement, pancreatitis, vasogenic edema, infection, among others. At this time, the patient's workup is pending and patient's care was transferred to the oncoming physician, Dr. Chavis. <Abdirizak Chavis MD - Last Filed: 12/29/23 00:46> Vital Signs: 12/28/23 22:02 12/28/23 23:04 12/29/23 00:17 Temperature 99.0 F 98.8 F Temperature Source Oral Oral Pulse Rate 70 72 Pulse Rate [Right] 90 Respiratory Rate 20 18 Blood Pressure 111/50 L 115/59 L Blood Pressure [Left Arm] 108/70 L Blood Pressure Mean 80 Blood Pressure Mean [Left Arm] 82 Blood Pressure Source [Left Arm] Automatic Cuff 02 Sat by Pulse Oximetry 95 95 Oxygen Delivery Method Room Air Room Air Room Air Lab Data Lab Results 12/28/23 22:05: WBC 20.6 H*, RBC 5.98, Hgb 16.6, Hct 49.8, MCV 83.2, MCH 27.8, MCHC 33.4, RDW 15.6, Plt Count 347, MPV 7.5, Neut % (Auto) 74.5, Lymph % (Auto) 18.8, Sevier % (Auto) 5.3, Eos % (Auto) 0.5, Baso % (Auto) 0.8, Neut # (Auto) 15.3 H, Lymph # (Auto) 3.9, Sevier # (Auto) 1.1 H, Eos # (Auto) 0.1, Baso # (Auto) 0.2, Total Counted 100, Neutrophils % (Manual) 73, Lymphocytes % (Manual) 19, Monocytes % (Manual) 7, Eosinophils % (Manual) 1, Platelet Estimate Normal, Microcytosis 2+, PT 11.3, INR 1.01, APTT 22.6 L, Sodium 136, Potassium 3.8, Chloride 103, Carbon Dioxide 26, Anion Gap 10.8, BUN 26 H, Creatinine 1.00, Estimated GFR 78, Est GFR ( Amer) 95, Glucose 98, Calcium 9.2, Magnesium 1.9, Total Bilirubin 1.1, AST 46, ALT 50, Alkaline Phosphatase 45, Total Protein 6.7, Albumin 3.9, Globulin 2.8, Albumin/Globulin Ratio 1.4 Orders (Tests/Meds): ED MEDICATIONS Discontinued Medications Generic Name Dose Route Start Last Admin Trade Name Zeferinoq PRN Reason Stop Dose Admin Acetaminophen 1,000 mg 12/28/23 23:02 12/28/23 23:14 Acetaminophen 1,000mg/100ml Vial IV 12/28/23 23:03 1,000 mg ONCE ONE Administration Ketorolac Tromethamine 30 mg 12/28/23 23:02 12/28/23 23:14 Ketorolac 30mg/Ml Vial IV 12/28/23 23:03 30 mg ONCE ONE Administration Pantoprazole Sodium 40 mg 12/28/23 22:19 12/28/23 22:44 Pantoprazole 40mg Vial IV 12/28/23 22:20 40 mg ONCE ONE Administration Promethazine HCl 25 mg 12/28/23 22:16 12/28/23 22:44 Promethazine Hcl 25mg/Ml 1ml Vial IV 12/28/23 22:17 25 mg ONCE ONE Administration Sodium Chloride 25 ml 12/28/23 22:16 12/28/23 22:44 Sodium Chloride 0.9% 25ml Bag IV 12/28/23 22:17 25 ml ONCE ONE Administration Sodium Chloride 10 ml 12/28/23 22:19 12/28/23 22:44 Sodium Chloride 0.9% 10ml Vial IV 01/27/24 22:18 10 ml NEEDED PRN Administration dilute protonix ORDERS Category Date Time Status CT head/brain wo con Stat Cat Scan 12/28/23 22:11 Completed Activated Partial Thrombo Time Stat Lab 12/28/23 22:05 Completed CBC w/Auto Diff [Complete Blood Count Auto Diff] Stat Lab 12/28/23 22:05 Completed Comprehensive Metabolic Panel Stat Lab 12/28/23 22:05 Completed Drug Screen,Urine Stat Lab 12/28/23 22:14 Ordered HIV (1&2) Antibody Rapid Stat Lab 12/28/23 22:05 Received Hep C Ab with Reflex to RNA Stat Lab 12/28/23 22:05 Received Lactic Acid Stat Lab 12/28/23 22:11 Ordered Magnesium Stat Lab 12/28/23 22:05 Completed Prothrombin Time INR Stat Lab 12/28/23 22:05 Completed ECG Request Stat Y 12/28/23 22:14 Ordered Medical Decision Narrative: Sam Titus is a 53-year-old male with a 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 Per EMS, patient was agitated with family and had a gun on scene. They stated that patient was not agitated and route and patient is calm on arrival. On arrival, patient is hemodynamically stable, afebrile, breathing comfortably on room air. Patient is alert and oriented, although intermittently seems mildly confused. He is complaining of nausea and vomiting. Discharge summary from was reviewed and patient was discharged yesterday after being persistent that he wanted to go home, however he was still receiving IV pain medications at that time due to uncontrolled pain. He was also continued to have nausea and vomiting according to the note. He was sent home with oxycodone and Zofran. Patient also recently finished a steroid taper. Patient noted to's be starting chemotherapy/radiation 2 weeks after his surgery. Differential diagnosis includes: Electrolyte derangement, pancreatitis, vasogenic edema, infection, among others. At this time, the patient's workup is pending and patient's care was transferred to the oncoming physician, Dr. Chavis. Palmira ELLISON: I assumed care of the patient at the time of handoff from the prior provider. On reassessment patient reports marked symptomatic improvement. He reports his headache is gone and he no longer feels nauseous. We had a discussion about his meds, he apparently did not realize that he had both pain and nausea medications in his bag upon discharge from . He reports that Phenergan usually works well for him and so I will prescribe him additional Phenergan. He is workup was reviewed and interpreted by me, shows leukocytosis but the significance of this is unclear given he is currently on chronic high-dose steroids. I also reviewed his CT scan, it shows expected postoperative changes and edema, nothing that looks particularly infectious or concerning at this time. The patient's incision is well-appearing and is not infected. I had extensive discussion with patient regarding his presentation. He reports that he feels okay to go home. He was discharged in stable condition with return precautions. I was consulted by the ROLAND, and we discussed the complexity of the problems being addressed. I approved the treatment and management plan for this patient?s care in the Emergency Department, thus performing a substantive portion of the medical decision making. Abdirizak Chavis MD Critical Care <Fredy Hazel MD - Last Filed: 12/28/23 23:40> Critical Care Time Critical Care Time: No
[2023-12-28 22:23] LABS: Basophils # 0.2 K/mm3 (0-0.2); Basophils % 0.8 % (0.1-2.0); Eosinophils # 0.1 K/mm3 (0.0-0.4); Eosinophils % 0.5 % (0.1-12.0); Hematocrit 49.8 % (42.0-52.0); Hemoglobin 16.6 g/dL (14.1-18.0); Lymphocytes # 3.9 K/mm3 (0.7-4.5); Lymphocytes % 18.8 % (10-50); Mean Corpuscular HGB Conc 33.4 g/dL (31.8-35.4); Mean Corpuscular Hemoglobin 27.8 pg (27.0-31.2); Mean Corpuscular Volume 83.2 fl (80-94); Mean Platelet Volume 7.5 fl (7.4-10.4); Monocytes # 1.1 K/mm3 (0.1-1.0); Monocytes % 5.3 % (1.7-9.3); Neutrophils # 15.3 K/mm3 (1.8-7.8); Neutrophils % 74.5 % (37.0-80.0); Platelet Count 347 K/mm3 (142-424); Red Blood Count 5.98 M/mm3 (4.60-6.20); Red Cell Distribution Width 15.6 % (11.5-17.5); White Blood Count 20.6 K/mm3 (4.8-10.8)
[2023-12-28 22:24] LABS: Albumin Level 3.9 g/dl (3.5-5.0); Chloride 103 mmol/L (98-107); Potassium 3.8 mmoL/L (3.5-5.1); Sodium 136 mmol/L (136-145)
[2023-12-28 22:25] LABS: MANUAL DIFFERENTIAL MANUAL DIFFERENTIAL (MANUAL DIFF)
[2023-12-28 22:27] LABS: Alanine Aminotransferase 50 U/L (12-78); Albumin/Globulin Ratio 1.4 (1.1-1.8); Alkaline Phosphatase 45 U/L (38-126); Anion Gap 10.8 mEq/L (5-15); Aspartate Amino Transferase 46 U/L (17-59); Bilirubin,Total 1.1 mg/dl (0.2-1.3); Blood Urea Nitrogen 26 mg/dl (9-20); Calcium 9.2 mg/dl (8.4-10.2); Carbon Dioxide 26 mmol/L (22.0-30.0); Estimated Glomerular Filt Rate 78 ml/min (>60); GFR (African American) 95 ML/MIN (>60); Globulin 2.8 g/dL (1.3-3.2); Glucose 98 mg/dl (74-100); Total Protein,Serum 6.7 g/dl (6.3-8.2)
[2023-12-28 22:28] LABS: Magnesium 1.9 mg/dl (1.6-2.3)
[2023-12-28 22:31] LABS: INR 1.01 (0.9-1.1); Prothrombin Time 11.3 seconds (10.1-12.5)
[2023-12-28 22:40] LABS: Eosinophils % 1 % (0-3); Lymphocytes % 19 % (10-50); Microcytosis 2+; Monocytes % 7 % (2-9); Neutrophils % 73 % (42-76); Platelet Estimate Normal; Total Cells Counted 100
[2023-12-28] MEDS: SODIUM CHLORIDE 0.9% 10ML VIAL 10 ML IV (22:44)
[2023-12-28] MEDS: SODIUM CHLORIDE 0.9% 25ML BAG 25 ML IV (22:44)
[2023-12-28] MEDS: PANTOPRAZOLE 40MG VIAL 40 MG IV (22:44)
[2023-12-28] MEDS: PROMETHAZINE HCL 25MG/ML 1ML VIAL 25 MG IV (22:44)
[2023-12-28 22:45] LABS: Activated Partial Thrombo Time 22.6 seconds (22.8-30.6)
[2023-12-28 23:04] VITALS: BP 111/50; PULSE 70; O2SAT 95
[2023-12-28] MEDS: KETOROLAC 30MG/ML VIAL 30 MG IV (23:14)
[2023-12-28] MEDS: ACETAMINOPHEN 1,000MG/100ML VIAL 1000 MG IV (23:14)
[2023-12-29 00:17] VITALS: BP 115/59; PULSE 72; RESP 18; TEMP 37.1; O2SAT 96
[2023-12-29 02:47] LABS: HIV (1&2) Antibody Rapid NONREACTIVE (NONREACTIVE)
[2023-12-31 05:16] LABS: HCV Ab Non Reactive (Non Reactive)
== END 2023-12-29 00:35 | disposition home or self-care (01) ==
PROVIDERS: Nurse Practitioner; Student in an Organized Health Care Education/Training Program; Emergency Provider Emergency Medicine; PCP Internal Medicine Adolescent Medicine
DX: R11.2 Nausea with vomiting, unspecified (principal); R51.9 Headache, unspecified; C34.90 Malignant neoplasm of unspecified part of unspecified bronchus or lung
CPT/HCPCS: 96374; 96375; 70450; 80053; 83735; 85007; 85025; 85610; 85730; 86803; 87389; 93005; 99284; J0131; J1885; J2550

== ENCOUNTER 2023-12-30 10:58 | Emergency (ER) | payer OTHER, SELFPAY ==
[2023-12-30 11:06] VITALS: BP 121/77; PULSE 87; RESP 18; TEMP 37.1; O2SAT 99
[2023-12-30 11:16] VITALS: BP 121/74; PULSE 63; O2SAT 97
--- NOTE | 2023-12-30 11:19 | CT_ITS ---
PROCEDURE INFORMATION: Exam: CT Head Without Contrast Exam date and time: 12/30/2023 11:33 AM Age: 53 years old Clinical indication: Other: Refractory n/v; Prior surgery; Surgery date: 3-7 days post-operative; Surgery type: States tumor was removed; Additional info: Refractory n/v recent brain surgery TECHNIQUE: Imaging protocol: Computed tomography of the head without contrast. Radiation optimization: All CT scans at this facility use at least one of these dose optimization techniques: automated exposure control; mA and/or kV adjustment per patient size (includes targeted exams where dose is matched to clinical indication); or iterative reconstruction. COMPARISON: CT HEAD/BRAIN WO CON 12/28/2023 10:44 PM FINDINGS: Brain: No acute infarct, hemorrhage, mass, or mass effect. Encephalomalacia in the inferior , paramedian left cerebellar hemisphere related to prior resection. On this modality, no focal lesion is identified. Mild chronic white matter microvascular ischemic change. No appreciable extra-axial collection. Ventricles are normal. Cerebral ventricles: See Brain finding. Paranasal sinuses: Visualized sinuses are unremarkable. No fluid levels. Mastoid air cells: Visualized mastoid air cells are well aerated. Teeth: Dental implants in the anterior/central mandible. Bones: See Soft tissues finding. Soft tissues: Postsurgical soft tissue changes of midline suboccipital craniotomy, with overlying soft tissue surgical mohit. No worrisome lytic or blastic osseous lesion. No distinct drainable fluid collection/abscess is identified. IMPRESSION: No acute intracranial abnormality. Postsurgical changes of left inferior cerebellar lesion resection.
--- NOTE | 2023-12-30 11:20 | HMH.EDGENADL ---
Discharge Plan Disposition Patient Disposition: Home, Self-Care Prescriptions Prescriptions: New promethazine 12.5 mg suppository 12.5 mg SC TID PRN (Reason: nausea and vomiting) Qty: 12 0RF Rx Instructions: do not give 3rd daily dose after evening meal or within 4hr before bed promethazine 25 mg tablet 25 mg PO TID PRN (Reason: nausea and vomiting) 5 Days Qty: 20 0RF ondansetron 4 mg tablet,disintegrating 4 mg PO Q6H PRN (Reason: nausea and vomiting) 5 Days Qty: 20 0RF No Action buspirone 10 mg tablet 10 mg PO BID Qty: 60 2RF vilazodone 40 mg tablet See Rx Instructions .ROUTE .COMPLEX Qty: 30 3RF Dose Instruction: Take 1 tablet by mouth once daily with food Rx Instructions: Take 1 tablet by mouth once daily with food albuterol sulfate [Ventolin HFA] 90 mcg/actuation HFA aerosol inhaler 2 puff inhalation Q6H PRN (Reason: shortness of breath or wheezing) Qty: 6.7 0RF promethazine 25 mg tablet 25 mg PO Q6H PRN (Reason: nausea and vomiting) Qty: 20 0RF dexamethasone 2 mg tablet 2 mg PO DIRECTED pantoprazole 40 mg tablet,delayed release (DR/EC) 40 mg PO DAILY nicotine 21 mg/24 hr patch 24 hour 21 mg transdermal DAILY bisacodyl 5 mg tablet,delayed release (DR/EC) 5 mg PO DAILY polyethylene glycol 3350 17 gram/dose powder 17 g PO DAILY scopolamine base 1 mg over 3 days patch 3 day 1 mg transdermal Q3D ondansetron 4 mg tablet,disintegrating 4 mg translingual Q6HP PRN (Reason: Nausea And Vomiting) oxycodone 5 mg tablet 5 mg PO Q6HP PRN (Reason: Pain) vilazodone 40 mg tablet 40 mg PO DAILY Referrals Follow up/Referrals: Michael Xie MD [Primary Care Provider] - See instructions Activity Restrictions/Add. Instructions Additional Instructions/Restrictions: No evidence of significant worsening swelling or abnormality on the CT scan today which showed expected postoperative changes. Multiple antiemetics/nausea medications have been prescribed please return to the emergency department if you are unable to keep fluids down. Clinical Impressions Clinical Impression: Nausea & vomiting, Lung cancer metastatic to brain Instructions Patient Instructions: DI for Diarrhea and Traveler's Diarrhea -- Adult, DI for Diarrhea and Traveler's Diarrhea -- Child, DI for Nausea -- Adult, DI for Nausea -- Child Print Language Print Language: Burkinan Discharge ED Provider: Lisset Barba General Adult HPI General Chief complaint: Nausea/Vomiting/Diarrhea Stated complaint: phys. refer. 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 He was discharged on Saturday since that time he has had refractory nausea and vomiting has been unable to keep any of his steroids down. Also has not been able to tolerate anything by mouth. Went to his primary care doctor today and because of how he looks he was sent to the emergency department. Patient denies any new or different neurologic symptoms since the surgery. He has had some difficulty with concentration but that has not changed since his recent surgery as well as some balance issues but otherwise has been at his baseline from that standpoint. No new or different focal neurologic deficits no change in mental status etc. Related Data Home Medications ?Medication ?Instructions ?Recorded ?Confirmed bisacodyl 5 mg tablet,delayed 5 mg PO DAILY 12/29/23 12/29/23 release dexamethasone 2 mg tablet 2 mg PO DIRECTED 12/29/23 12/29/23 nicotine 21 mg/24 hr daily 21 mg transdermal DAILY 12/29/23 12/29/23 transdermal patch ondansetron 4 mg disintegrating 4 mg translingual Q6HP PRN Nausea 12/29/23 12/29/23 tablet And Vomiting oxycodone 5 mg tablet 5 mg PO Q6HP PRN Pain 12/29/23 12/29/23 pantoprazole 40 mg tablet,delayed 40 mg PO DAILY gi 12/29/23 12/29/23 release polyethylene glycol 3350 17 17 g PO DAILY 12/29/23 12/29/23 gram/dose oral powder scopolamine base 1 mg over 3 days 1 mg transdermal Q3D 12/29/23 12/29/23 transdermal patch vilazodone 40 mg tablet 40 mg PO DAILY 12/29/23 12/29/23 Previous Rx's ?Medication ?Instructions ?Recorded albuterol sulfate 90 mcg/actuation 2 puff inhalation Q6H PRN 11/04/22 aerosol inhaler (Ventolin HFA) shortness of breath or wheezing #6.7 grams vilazodone 40 mg tablet See Rx Instructions .Route 10/10/23 .COMPLEX #30 tabs buspirone 10 mg tablet 10 mg PO BID #60 tabs 10/25/23 promethazine 25 mg tablet 25 mg PO Q6H PRN nausea and 12/29/23 vomiting #20 tabs ondansetron 4 mg disintegrating 4 mg PO Q6H PRN nausea and 12/30/23 tablet vomiting 5 days #20 tabs promethazine 12.5 mg rectal 12.5 mg SC TID PRN nausea and 12/30/23 suppository vomiting #12 ea promethazine 25 mg tablet 25 mg PO TID PRN nausea and 12/30/23 vomiting 5 days #20 tabs Allergies Allergy/AdvReac Type Severity Reaction Status Date / Time No Known Allergies Allergy Verified 12/30/23 11:33 [facility] Disclaimer: The information contained in this section may have been updated after the patient was seen, as this information can be updated by other users. Medical History (Updated 12/30/23 @ 11:22 by Lisset Barba MD) Major depressive disorder Generalized anxiety disorder Surgical History (Updated 04/11/23 @ 13:30 by Araseli William APRN) History of appendectomy Social History (Updated 04/11/23 @ 13:29 by Araseli William APRN) Smoking Status: Current every day smoker tobacco type: cigarettes packs per day: 3 second hand exposure: No alcohol intake: never counseling given: No substance use type: denies use counseling given: No current occupational status: employed and other Travel in the last 8 weeks: [place] the [place] adopted: No caregiver/support person: Yes foster care: No household members: children housing: house lives independently: Yes marital status: legally number of children: 3 number of grandchildren: 0 education level: high school Hx Recent Travel: No sexually active: Yes caffeine: Yes physical activity: none working smoke detector in home: Yes fire extinguisher in home: Yes carbon monox detector in home: Yes firearms in home: Yes firearms unloaded and locked: Yes do you feel safe at home: Yes victim of physical abuse: No victim of emotional abuse: No victim of sexual abuse: No would you like helpful sources: No Other Medical History Have you received the Flu Vaccine for this season: No Have you received the Pneumonia Vaccine: No ROS Obtained: Yes All systems reviewed & no additional complaints except as documented Physical Exam General General appearance: alert Respiratory Respiratory exam: Present normal lung sounds bilaterally; Absent respiratory distress Cardiovascular Cardiovascular exam: Present regular rate; Absent normal rhythm Abdominal Exam Abdominal exam: Present soft; Absent distention or tenderness Neurological Exam Neurological exam: Present alert, oriented X3, CN II-XII intact and normal gait; Absent motor sensory deficit Medical Decision Making Medical Records Screening: Per USPSTF and CDC recommendations, given the prevalence of disease in our region, it is our hospital?s policy to screen for HIV and viral Hepatitis for all patients aged 18 and over and those with ongoing risk factors. [place] Inquiry Pt receiving controlled substance: No Vital Signs: 12/30/23 11:06 12/30/23 11:16 12/30/23 11:22 Temperature 98.7 F 98 F Temperature Source Oral Oral Pulse Rate 87 63 Pulse Rate [Left] 72 Respiratory Rate 18 18 Blood Pressure 121/77 121/74 Blood Pressure [Right Arm] 121/77 Blood Pressure Mean [Right Arm] 91 Blood Pressure Source Automatic Cuff Blood Pressure Source [Right Arm] Automatic Cuff Blood Pressure Position [Right Arm] Sitting 02 Sat by Pulse Oximetry 99 97 97 Oxygen Delivery Method Room Air Room Air Room Air 12/30/23 11:45 12/30/23 12:00 Temperature Temperature Source Pulse Rate 65 62 Pulse Rate [Left] Respiratory Rate Blood Pressure 132/69 108/47 L Blood Pressure [Right Arm] Blood Pressure Mean [Right Arm] Blood Pressure Source Blood Pressure Source [Right Arm] Blood Pressure Position [Right Arm] 02 Sat by Pulse Oximetry 96 97 Oxygen Delivery Method Room Air Room Air Lab Data Lab results reviewed: Yes I reviewed the patient's lab results. Lab Results 12/30/23 11:20: WBC 22.3 H*, RBC 5.80, Hgb 16.1, Hct 48.0, MCV 82.8, MCH 27.8, MCHC 33.6, RDW 15.9, Plt Count 351, MPV 7.4, Neut % (Auto) 79.9, Lymph % (Auto) 15.3, [place] % (Auto) 3.9, Eos % (Auto) 0.3, Baso % (Auto) 0.6, Neut # (Auto) 17.8 H, Lymph # (Auto) 3.4, [place] # (Auto) 0.9, Eos # (Auto) 0.1, Baso # (Auto) 0.1, Total Counted 100, Neutrophils % (Manual) 80 H, Lymphocytes % (Manual) 17, Monocytes % (Manual) 3, Platelet Estimate Normal, RBC Morphology Normal, Sodium 137, Potassium 3.9, Chloride 105, Carbon Dioxide 24, Anion Gap 11.9, BUN 23 H, Creatinine 1.00, Estimated Creat Clear 93, Estimated GFR 78, Est GFR ( Amer) 95, Glucose 84, Calcium 9.5, Phosphorus 2.6, Magnesium 1.9, Total Bilirubin 1.1, AST 38, ALT 50, Alkaline Phosphatase 47, Total Protein 6.8, Albumin 3.9, Globulin 2.9, Albumin/Globulin Ratio 1.3 12/30/23 11:20 12/30/23 11:20 Orders (Tests/Meds): ED MEDICATIONS Generic Name Dose Route Start Last Admin Trade Name Freq PRN Reason Stop Dose Admin Lactated Ringer's 1,000 mls @ 999 mls/hr 12/30/23 11:30 12/30/23 11:27 Lactated Ringer's 1000 Ml Bag IV 12/30/23 12:30 999 mls/hr .Q1H1M NORY Administration Discontinued Medications Generic Name Dose Route Start Last Admin Trade Name Freq PRN Reason Stop Dose Admin Dexamethasone Sodium Phosphate 10 mg 12/30/23 11:19 12/30/23 11:27 Dexamethasone 4mg/Ml 1ml Vial IV 12/30/23 11:20 10 mg ONCE ONE Administration Ondansetron HCl 4 mg 12/30/23 11:19 12/30/23 11:27 Ondansetron 4mg/2ml Vial IV 12/30/23 11:20 4 mg ONCE ONE Administration ORDERS Category Date Time Status CT head/brain wo con Stat Cat Scan 12/30/23 11:19 Completed CBC w/Auto Diff [Complete Blood Count Auto Diff] Stat Lab 12/30/23 11:20 Completed CMP [Comprehensive Metabolic Panel] Stat Lab 12/30/23 11:20 Completed Magnesium Stat Lab 12/30/23 11:20 Completed Phosphorous Stat Lab 12/30/23 11:20 Completed Medical Decision Narrative: 53-year-old male with above history and physical. Differential includes intracranial hypertension or mass effect with vasogenic edema from recent surgery causing nausea and vomiting. Viral etiologies etc. may be on the differential in addition to electrolyte abnormalities renal insufficiency etc. He is mildly dehydrated clinically will give him IV fluids IV Zofran also will administer IV dexamethasone which will both help from an antiemetic standpoint and the swelling standpoint. Noncontrast CT scan has been ordered to evaluate the amount of edema and see if there is any significant or obvious worsening. Reassessment 12:[address] scan of the patient's head performed which I personally interpreted which shows no acute abnormalities and normal postoperative changes no significant bleeding or edema etc. Patient significantly improved symptomatically after IV medications and IV fluids labs otherwise unremarkable he is stable for outpatient discharge. I have given her prescription of Zofran Phenergan and rectal Phenergan suppositories and he has been advised pelvis primary care doctor or his neurosurgeons as instructed. Return precautions also emphasized Critical Care Critical Care Time Critical Care Time: No
[2023-12-30 11:22] VITALS: BP 121/77; PULSE 72; RESP 18; TEMP 36.6; O2SAT 97; BMI 26.6
[2023-12-30] MEDS: DEXAMETHASONE 4MG/ML 1ML VIAL 10 MG IV (11:27)
[2023-12-30] MEDS: ONDANSETRON 4MG/2ML VIAL 4 MG IV (11:27)
[2023-12-30] MEDS: LACTATED RINGERS 1000ML 1,000 ML 999 ML IV (11:27)
--- NOTE | 2023-12-30 11:28 | PC.NURSE ---
pt transported to radiology via wheelchair
[2023-12-30 11:36] LABS: Basophils # 0.1 K/mm3 (0-0.2); Basophils % 0.6 % (0.1-2.0); Eosinophils # 0.1 K/mm3 (0.0-0.4); Eosinophils % 0.3 % (0.1-12.0); Hemoglobin 16.1 g/dL (14.1-18.0); Lymphocytes # 3.4 K/mm3 (0.7-4.5); Lymphocytes % 15.3 % (10-50); Mean Corpuscular HGB Conc 33.6 g/dL (31.8-35.4); Mean Corpuscular Hemoglobin 27.8 pg (27.0-31.2); Mean Corpuscular Volume 82.8 fl (80-94); Mean Platelet Volume 7.4 fl (7.4-10.4); Monocytes # 0.9 K/mm3 (0.1-1.0); Monocytes % 3.9 % (1.7-9.3); Neutrophils # 17.8 K/mm3 (1.8-7.8); Neutrophils % 79.9 % (37.0-80.0); Platelet Count 351 K/mm3 (142-424); Red Cell Distribution Width 15.9 % (11.5-17.5); White Blood Count 22.3 K/mm3 (4.8-10.8)
[2023-12-30 11:39] LABS: MANUAL DIFFERENTIAL MANUAL DIFFERENTIAL (MANUAL DIFF)
[2023-12-30 11:43] LABS: Albumin Level 3.9 g/dl (3.5-5.0); Chloride 105 mmol/L (98-107); Potassium 3.9 mmoL/L (3.5-5.1); Sodium 137 mmol/L (136-145)
[2023-12-30 11:45] VITALS: BP 132/69; PULSE 65; O2SAT 96
[2023-12-30 11:45] LABS: Alanine Aminotransferase 50 U/L (12-78); Anion Gap 11.9 mEq/L (5-15); Aspartate Amino Transferase 38 U/L (17-59); Blood Urea Nitrogen 23 mg/dl (9-20); Carbon Dioxide 24 mmol/L (22.0-30.0); Creatinine Clearance Estimated 93 mL/min (50-200); Estimated Glomerular Filt Rate 78 ml/min (>60); GFR (African American) 95 ML/MIN (>60)
--- NOTE | 2023-12-30 11:45 | PC.NURSE ---
PT RETURNED FROM CT, CHOCOLATE MILK PROVIDED PER PT REQUEST
[2023-12-30 11:46] LABS: Albumin/Globulin Ratio 1.3 (1.1-1.8); Alkaline Phosphatase 47 U/L (38-126); Bilirubin,Total 1.1 mg/dl (0.2-1.3); Calcium 9.5 mg/dl (8.4-10.2); Globulin 2.9 g/dL (1.3-3.2); Glucose 84 mg/dl (74-100); Magnesium 1.9 mg/dl (1.6-2.3); Phosphorous 2.6 mg/dl (2.5-4.5); Total Protein,Serum 6.8 g/dl (6.3-8.2)
[2023-12-30 11:56] LABS: Lymphocytes % 17 % (10-50); Monocytes % 3 % (2-9); Neutrophils % 80 % (42-76); Platelet Estimate Normal; RBC Morphology Normal; Total Cells Counted 100
[2023-12-30 12:00] VITALS: BP 108/47; PULSE 62; O2SAT 97
--- NOTE | 2023-12-30 12:30 | PC.NURSE ---
DR GANN AT BEDSIDE TO UPDATE PT AND
[2023-12-30 12:52] VITALS: BP 127/81; PULSE 80; RESP 18; TEMP 36.9; O2SAT 99
== END 2023-12-30 12:52 | disposition home or self-care (01) ==
PROVIDERS: Emergency Provider Student in an Organized Health Care Education/Training Program; PCP Internal Medicine Adolescent Medicine
DX: R11.2 Nausea with vomiting, unspecified (principal); C34.90 Malignant neoplasm of unspecified part of unspecified bronchus or lung
CPT/HCPCS: 70450; 80053; 83735; 84100; 85007; 85025; 96361; 96374; 96375; 99284; J1100; J2405; J7120

== ENCOUNTER 2024-12-03 10:19 | Outpatient (CLI) | payer OTHER, SELFPAY ==
--- OUTSIDE RECORDS SUMMARY | 2024-12-03 10:23 | XMS_ITS | Clinical Summary ---
Author Organization [facility] Address [address] [place] [address] Care Team Providers Care Benefit Director Name Role Phone Unavailable Primary Care Provider Unavailabl e Encounters Date Type Department Care Team Description 09/23/2024 Telephone [facility] Administrative Services [address] [place] [address] Katya Iglesias RN Hospital Follow Up from Last 3 Months Social History Tobacco Use Types Packs/Day Years Used Date Smoking Tobacco: Never Assessed Sex and Gender Information Value Date Recorded Sex Assigned at Not on file Legal Sex Male 4:01 PM EDT Gender Identity Not on file Sexual Orientation Not on file Plan of Treatment Health Maintenance Due Date Last Done Comments CT Colonography 1970 Colonoscopy 1970 Colorectal Cancer Screening 1970 FIT-DNA (Cologuard) 1970 FIT 1970 FOBT 1970 HIV Screening 1970 Hepatitis C Screening 1970 Sigmoidoscopy 1970 MMR Vaccines (1 of 1 - Stand bhavana series) 10/17/1971 COVID-19 Vaccine (#1) 10/17/1975 Hepatitis B Screening 1988 DTaP/Tdap/Td Vaccines (1 - Tdap) 1989 Hepatitis B Vaccines (1 of 3 - 19+ 3-dose series) 1989 Pneumococcal Vaccine: 50+ Ye ars (1 of 2 - PCV) 1989 Zoster Vaccines (1 of 2) 1989 Depression Risk Screening 03/11/2024 SDOH Screening 03/11/2024 Influenza Vaccine (#1) 2024 Lipid Panel 12/19/2028 12/20/2023 HIB Vaccines Aged Out No longer eligi ble based on patient's age to complete this topic HPV Vaccines Aged Out No longer eligi ble based on patient's age to complete this topic Hepatitis A Vaccines Aged Out No long er eligible based on patient's age to complete this topic IPV Vaccines Aged Out No longer eligi ble based on patient's age to complete this topic Meningococcal B Vaccine Aged Out No l onger eligible based on patient's age to complete this topic Meningococcal Vaccine Aged Out No elisa nidhi eligible based on patient's age to complete this topic Rotavirus Vaccines Aged Out No longer eligible based on patient's age to complete this topic Procedures Procedure Name Priority Date/Time Associated Diagnosis Comments T4, FREE Routine 10/05/2024 1:39 PM EDT VITAMIN B12 Routine 10/05/2024 1:39 PM EDT FOLATE Routine 10/05/2024 1:39 PM EDT TSH W/ REFLEX TO FREE T4 Routine 10/05/2024 1:39 PM EDT FERRITIN Routine 10/05/2024 1:39 PM EDT IRON, TIBC AND FERRITIN PANEL Routine 10/05/2024 1:39 PM EDT BCC MAGNESIUM LEVEL Routine 10/05/2024 1 :39 PM EDT BCC PHOSPHORUS LEVEL Routine 10/05/2024 1:39 PM EDT BCC CMP Routine 10/05/2024 1:39 PM EDT AUTODIFF Routine 10/05/2024 1:39 PM EDT BCC CBC W/ AUTO DIFF Routine 10/05/2024 1:39 PM EDT URINE CULTURE Routine 09/21/2024 6:05 PM EDT LIPASE STAT 09/21/2024 3:13 PM EDT CMP COMPREHENSIVE METABOLIC PANEL STAT 09/21/2024 3:13 PM EDT AUTODIFF STAT 09/21/2024 3:13 PM EDT CBC AND DIFFERENTIAL STAT 09/21/2024 3:13 PM EDT from Last 3 Months Results * BCC MAGNESIUM LEVEL (10/05/2024 1:39 PM EDT) Magnesium 2.4 1.9 - 2.7 mg/dL 10/05/2024 2:02 PM EDT [facility] CH Rem 2.0 Blood 10/05/2024 1:39 PM EDT 10/05/2024 1:40 PM EDT [facility] - 10/05/2024 2:02 PM EDT Performed by [facility], [address] [place] [address] Debbie Oneal MD LAB BLOOD ORDERABLES Final R esult Performing Organization Address City/State/[facility] Co de Phone Number [facility] [address] [place] [address], UL CH Rem 2.0 Pathology Department [address] [place] [address] * (ABNORMAL) BCC CBC W/ AUTO DIFF (10/05/2024 1:39 PM EDT) WBC 8.6 4.0 - 10.8 x10(3)/ul 10/05/2024 1:42 PM EDT [facility] Rem 2.0 RBC 5.03 4.37 - 5.74 x10(6)/ul 10/05/2024 1:42 PM EDT [facility] HE Rem 2.0 HGB 12.8(L) 13.0 - 17.5 Gram/dL 10/05/2024 1:42 PM EDT [facility] HE Rem 2.0 Hematocrit 38.6 38.0 - 51.0 % 10/05/2024 1:42 PM EDT [facility] Rem 2.0 MCV 76.7(L) 79.0 - 92.2 fL 10/05/2024 1:42 PM EDT [facility] Rem 2.0 MCH 25.4(L) 25.6 - 32.2 pg 10/05/2024 1:42 PM EDT [facility] Rem 2.0 MCHC 33.2 32.3 - 36.5 Gram/dL 10/05/2024 1:42 PM EDT [facility] Rem 2.0 RDW 16.6(H) 11.0 - 15.5 % 10/05/2024 1:42 PM EDT [facility] Rem 2.0 Platelets 376 140 - 420 x10(3)/ul 10/05/2024 1:42 PM EDT [facility] Rem 2.0 MPV 6.2(L) 6.5 - 12.0 fL 10/05/2024 1:42 PM EDT [facility] Rem 2.0 SLIDE REVIEW NONE 10/05/2024 1:42 PM EDT [facility] Rem 2.0 Blood 10/05/2024 1:39 PM EDT 10/05/2024 1:40 PM EDT [facility] - 10/05/2024 1:42 PM EDT Performed by [facility], [address] [place] [address] Debbie Oneal MD LAB BLOOD ORDERABLES Final R esult [facility] [address] [place] [address], [facility] Rem 2.0 Pathology Department [address] [place] [address] * (ABNORMAL) BCC CMP (10/05/2024 1:39 PM EDT) Sodium 135(L) 136 - 145 mmol/L 10/05/2024 2:02 PM EDT [facility] CH Rem 2.0 Potassium 3.2(L) 3.5 - 5.1 mmol/L 10/05/2024 2:02 PM EDT [facility] CH Rem 2.0 Chloride 95(L) 98 - 110 mmol/L 10/05/2024 2:02 PM EDT [facility] CH Rem 2.0 CO2 29 21 - 31 mmol/L 10/05/2024 2:02 PM EDT [facility] CH Rem 2.0 Anion Gap 11.0 2.0 - 11.0 10/05/2024 2:02 PM EDT [facility] CH Rem 2.0 Calcium 9.2 8.6 - 10.2 mg/dL 10/05/2024 2:02 PM EDT [facility] CH Rem 2.0 Glucose 103 74 - 109 mg/dL 10/05/2024 2:02 PM EDT [facility] CH Rem 2.0 BUN 19 7 - 25 mg/dL 10/05/2024 2:02 PM EDT [facility] CH Rem 2.0 Creatinine 4.34(H) 0.70 - 1.30 mg/dL 10/05/2024 2:02 PM EDT [facility] CH Rem 2.0 BUN/Creatinine Ratio 4.4(L) 6.0 - 22.0 10/05/2024 2:02 PM EDT [facility] CH Rem 2.0 Albumin 3.9 3.5 - 5.2 Gram/dL 10/05/2024 2:02 PM EDT [facility] CH Rem 2.0 Total Protein 7.3 6.4 - 8.9 Gram/dL 10/05/2024 2:02 PM EDT [facility] CH Rem 2.0 A/G Ratio 1.1 1.0 - 2.5 10/05/2024 2:02 PM EDT [facility] CH Rem 2.0 Alkaline Phosphatase 76 34 - 104 Units/Lite r 10/05/2024 2:02 PM EDT [facility] CH Rem 2.0 ALT (SGPT) 9 <=32 Units/Lite r 10/05/2024 2:02 PM EDT [facility] CH Rem 2.0 AST 17 13 - 39 Units/Lite r 10/05/2024 2:02 PM EDT [facility] CH Rem 2.0 Total Bilirubin 0.6 0.3 - 1.0 mg/dL 10/05/2024 2:02 PM EDT [facility] CH Rem 2.0 Globulin, Total 3.4 2.0 - 3.5 Gram/dL 10/05/2024 2:02 PM EDT [facility] CH Rem 2.0 EGFR 15(L) >=60 mL/min/1.7 3m2 10/05/2024 2:02 PM EDT [facility] CH Rem 2.0 Comment:eGFR calculation per formed using the CKD-EPI 2020 equation (race variable excluded) Blood 10/05/2024 1:39 PM EDT 10/05/2024 1:40 PM EDT [facility] - 10/05/2024 2:02 PM EDT Performed by [facility], [address] [place] [address] Debbie Oneal MD LAB BLOOD ORDERABLES Final R esult Performing Organization Address [facility] de Phone Number [facility] [address] [place] [address], UL CH Rem 2.0 Pathology Department [address] [place] [address] * (ABNORMAL) BCC Phosphorus Level (10/05/2024 1:39 PM EDT) Phosphorus 5.2(H) 2.5 - 5.0 mg/dL 10/05/2024 2:02 PM EDT [facility] CH Rem 2.0 Blood 10/05/2024 1:39 PM EDT 10/05/2024 1:40 PM EDT [facility] - 10/05/2024 2:02 PM EDT Performed by [facility], [address] [place] [address] Debbie Oneal MD LAB BLOOD ORDERABLES Final R esult Performing Organization Address [facility] de Phone Number [facility] [address] [place] [address], UL CH Rem 2.0 Pathology Department [address] [place] [address] * AUTODIFF (10/05/2024 1:39 PM EDT) Only the most recent of2 resultswithin the time period is included. NEUT % 63.2 34.0 - 75.0 % 10/05/2024 1:42 PM EDT [facility] Rem 2.0 LYMPH % 20.7 17.0 - 53.0 % 10/05/2024 1:42 PM EDT [facility] Rem 2.0 MONO % 8.6 2.0 - 12.0 % 10/05/2024 1:42 PM EDT [facility] HE Rem 2.0 EOS % 6.4 0.0 - 7.0 % 10/05/2024 1:42 PM EDT [facility] HE Rem 2.0 BASO % 1.1 0.0 - 3.0 % 10/05/2024 1:42 PM EDT [facility] HE Rem 2.0 NEUT # 5.4 1.5 - 7.1 x10(3)/ul 10/05/2024 1:42 PM EDT [facility] HE Rem 2.0 LYMPH # 1.8 1.0 - 3.5 x10(3)/ul 10/05/2024 1:42 PM EDT [facility] HE Rem 2.0 MONO # 0.7 0.0 - 1.0 x10(3)/ul 10/05/2024 1:42 PM EDT [facility] Rem 2.0 EOS # 0.5 0.0 - 0.7 x10(3)/ul 10/05/2024 1:42 PM EDT [facility] HE Rem 2.0 BASO # 0.1 0.0 - 0.3 x10(3)/ul 10/05/2024 1:42 PM EDT [facility] HE Rem 2.0 Blood 10/05/2024 1:39 PM EDT 10/05/2024 1:40 PM EDT [facility] - 10/05/2024 1:42 PM EDT Ordered by Discern Expert. [email or web address] Performed by [facility], [address] [place] [address] Debbie Oneal MD LAB BLOOD ORDERABLES Final R esult [facility] [address] [place] [address], [facility] HE Rem 2.0 Pathology Department [address] [place] [address] * (ABNORMAL) IRON, TIBC AND FERRITIN PANEL (10/05/2024 1:39 PM EDT) Iron <10(L) 50 - 212 ug/dL 10/05/2024 2:21 PM EDT [facility] CH Rem 2.0 Transferrin 122(L) 203 - 362 mg/dL 10/05/2024 2:21 PM EDT [facility] CH Rem 2.0 TIBC 171(L) 252 - 461 ug/dL 10/05/2024 2:21 PM EDT UL CH Rem 2.0 TRANSFERRIN SAT <6(L) 20 - 50 % 2:21 PM EDT [facility] Rem 2.0 Blood 10/05/2024 1:39 PM EDT 10/05/2024 1:48 PM EDT [facility] - 10/05/2024 2:21 PM EDT Performed by [facility], [address] [place] [address] [place] Debbie Oneal MD LAB BLOOD ORDERABLES Final R esult Performing Organization Address [facility] de Phone Number [facility] [address] [place] [address], [facility] CH Rem 2.0 Pathology Department [address] [place] [address] * (ABNORMAL) TSH W/ REFLEX TO FREE T4 (10/05/2024 1:39 PM EDT) TSH 21.80(H) 0.50 - 5.70 uIU/mL 10/05/2024 2:26 PM EDT UL CH Rem 2.0 Blood 10/05/2024 1:39 PM EDT 10/05/2024 1:48 PM EDT [facility] - 10/05/2024 2:26 PM EDT Performed by [facility], [address] [place] [address] us Debbie Oneal MD LAB BLOOD ORDERABLES Final R esult Performing Organization Address City/[facility] Co de Phone Number [facility] [address] [place] [address], UL CH Rem 2.0 Pathology Department [address] [place] [address] * (ABNORMAL) T4, free (10/05/2024 1:39 PM EDT) Free T4 0.45(L) 0.58 - 1.65 ng/dL 10/05/2024 10:40 PM EDT UL Core CH Remisol SS Blood 10/05/2024 1:39 PM EDT 10/05/2024 1:48 PM EDT [facility] - 10/05/2024 10:41 PM EDT Ordered by Discern Expert. Performed by [facility], [address] [place] [address] us Debbie Oneal MD LAB BLOOD ORDERABLES Final R esult [facility] [address] [place] [address], [facility] Core CH Remisol SS Pathology Department [address] [place] [address] * Folate (10/05/2024 1:39 PM EDT) Folate 15.2 >=5.9 ng/mL 10/05/2024 2:33 PM EDT UL CH Rem 2.0 Blood 10/05/2024 1:39 PM EDT 10/05/2024 1:48 PM EDT [facility] - 10/05/2024 2:33 PM EDT Performed by [facility], [address] [place] [address] us Debbie Oneal MD LAB BLOOD ORDERABLES Final R esult [facility] [address] [place] [address], [facility] CH Rem 2.0 Pathology Department [address] [place] [address] * Ferritin (10/05/2024 1:39 PM EDT) Ferritin 121.0 23.9 - 336.2 ng/mL 10/05/2024 2:26 PM EDT [facility] CH Rem 2.0 Blood 10/05/2024 1:39 PM EDT 10/05/2024 1:48 PM EDT [facility] - 10/05/2024 2:26 PM EDT Performed by [facility], [address] [place] [address] Debbie Oneal MD LAB BLOOD ORDERABLES Final R esult Performing Organization Address [facility] Co de Phone Number [facility] [address] [place] [id number], UL CH Rem 2.0 Pathology Department [address] [place] [address] * Vitamin B12 (10/05/2024 1:39 PM EDT) Vitamin B-12 553 180 - 914 pg/mL 10/05/2024 2:33 PM EDT [facility] CH Rem 2.0 Blood 10/05/2024 1:39 PM EDT 10/05/2024 1:48 PM EDT [facility] - 10/05/2024 2:33 PM EDT Performed by [facility], [address] [place] [address] us Debbie Oneal MD LAB BLOOD ORDERABLES Final R esult Performing Organization Address [facility] de Phone Number [facility] [address] [place] [address], UL CH Rem 2.0 Pathology Department [address] [place] [address] * Urine culture (09/21/2024 6:05 PM EDT) Urine 09/21/2024 6:05 PM EDT 09/23/2024 10:27 AM EDT [facility] - 09/24/2024 5:46 AM EDT XIMENA Friedman :1970 Sex Male t: : Microbiology - Bacteriology PROCEDURE: Culture Urine [R1] COLLECTED DATE/TIME: 09/21/2024 18:05 EDT SOURCE: U CleanCatch START DATE/TIME: 09/23/2024 10:27 EDT BODY SITE: ORDERING PHYSICIAN SYSTEM, SYSTEM FREE TEXT SOURCE: FINAL REPORTS Final Report [] Verified Date/Time: 09/24/2024 05:46 EDT No growth Performing Locations R1: This test was performed at: [facility], Pathology Department, [address] [place] [address], [place], [address]- , [place], us Non-[facility] Provider LAB MICROBIOLOGY - GENERAL LINDSEY NEGRETE Final Result [facility] [address] [place] [id number], * (ABNORMAL) CBC With Differential (09/21/2024 3:13 PM EDT) WBC 9.5 4.0 - 10.8 x10(3)/ul 09/21/2024 3:36 PM EDT [facility] HE Rem 2.0 RBC 5.11 4.37 - 5.74 x10(6)/ul 09/21/2024 3:36 PM EDT [facility] HE Rem 2.0 HGB 13.6 13.0 - 17.5 Gram/dL 09/21/2024 3:36 PM EDT [facility] HE Rem 2.0 Hematocrit 40.3 38.0 - 51.0 % 09/21/2024 3:36 PM EDT [facility] HE Rem 2.0 MCV 78.8(L) 79.0 - 92.2 fL 09/21/2024 3:36 PM EDT [facility] HE Rem 2.0 MCH 26.6 25.6 - 32.2 pg 09/21/2024 3:36 PM EDT [facility] HE Rem 2.0 MCHC 33.7 32.3 - 36.5 Gram/dL 09/21/2024 3:36 PM EDT [facility] HE Rem 2.0 RDW 17.6(H) 11.0 - 15.5 % 09/21/2024 3:36 PM EDT [facility] HE Rem 2.0 Platelets 347 140 - 420 x10(3)/ul 09/21/2024 3:36 PM EDT [facility] HE Rem 2.0 MPV 7.2 6.5 - 12.0 fL 09/21/2024 3:36 PM EDT [facility] HE Rem 2.0 SLIDE REVIEW NONE 09/21/2024 3:36 PM EDT [facility] HE Rem 2.0 Blood 09/21/2024 3:13 PM EDT 09/21/2024 3:30 PM EDT [facility] - 09/21/2024 3:36 PM EDT labs, fluids Performed by [facility], [address] [place] [address] Mary Alejandro MD LAB BLOOD ORDERABLES F inal Result Performing Organization Address [facility] Co de Phone Number [facility] [address] [place] [id number], [place] [facility] HE Rem 2.0 Pathology Department [address] [place] [address] * (ABNORMAL) Lipase (09/21/2024 3:13 PM EDT) Lipase 8(L) 11 - 82 Units/Liter 09/21/2024 3:59 PM EDT [facility] CH Rem 2.0 Blood 09/21/2024 3:13 PM EDT 09/21/2024 3:31 PM EDT [facility] - 09/21/2024 3:59 PM EDT labs, fluids Performed by [facility], [address] [place] [address] us Mary Alejandro MD LAB BLOOD ORDERABLES F inal Result Performing Organization Address [facility] de Phone Number [facility] [address] [place] [address], [place] [facility] CH Rem 2.0 Pathology Department [address] [place] [address] * (ABNORMAL) Comprehensive metabolic panel (09/21/2024 3:13 PM EDT) Sodium 134(L) 136 - 145 mmol/L 09/21/2024 3:59 PM EDT [facility] CH Rem 2.0 Potassium 3.5 3.5 - 5.1 mmol/L 09/21/2024 3:59 PM EDT [facility] CH Rem 2.0 Chloride 97(L) 98 - 110 mmol/L 09/21/2024 3:59 PM EDT [facility] CH Rem 2.0 CO2 24 21 - 31 mmol/L 09/21/2024 3:59 PM EDT [facility] CH Rem 2.0 Anion Gap 13.0(H) 2.0 - 11.0 09/21/2024 3:59 PM EDT [facility] CH Rem 2.0 Calcium 9.4 8.6 - 10.2 mg/dL 09/21/2024 3:59 PM EDT [facility] CH Rem 2.0 Glucose 57(L) 74 - 109 mg/dL 09/21/2024 3:59 PM EDT [facility] CH Rem 2.0 BUN 13 7 - 25 mg/dL 09/21/2024 3:59 PM EDT [facility] CH Rem 2.0 Creatinine 1.76(H) 0.70 - 1.30 mg/dL 09/21/2024 3:59 PM EDT [facility] CH Rem 2.0 BUN/Creatinine Ratio 7.4 6.0 - 22.0 09/21/2024 3:59 PM EDT [facility] CH Rem 2.0 Albumin 3.7 3.5 - 5.2 Gram/dL 09/21/2024 3:59 PM EDT [facility] CH Rem 2.0 Total Protein 7.1 6.4 - 8.9 Gram/dL 09/21/2024 3:59 PM EDT [facility] CH Rem 2.0 A/G Ratio 1.1 1.0 - 2.5 09/21/2024 3:59 PM EDT [facility] CH Rem 2.0 Alkaline Phosphatase 51 34 - 104 Units/Lite r 09/21/2024 3:59 PM EDT [facility] CH Rem 2.0 ALT (SGPT) 6 <=32 Units/Lite r 09/21/2024 3:59 PM EDT [facility] CH Rem 2.0 AST 13 13 - 39 Units/Lite r 09/21/2024 3:59 PM EDT [facility] CH Rem 2.0 Total Bilirubin 1.1(H) 0.3 - 1.0 mg/dL 09/21/2024 3:59 PM EDT [facility] CH Rem 2.0 Globulin, Total 3.4 2.0 - 3.5 Gram/dL 09/21/2024 3:59 PM EDT [facility] CH Rem 2.0 EGFR 46(L) >=60 mL/min/1.7 3m2 09/21/2024 3:59 PM EDT UL CH Rem 2.0 Comment:eGFR calculation per formed using the CKD-EPI 2020 equation (race variable excluded) Blood 09/21/2024 3:13 PM EDT 09/21/2024 3:31 PM EDT [facility] - 09/21/2024 3:59 PM EDT labs, fluids Performed by [facility], [address] [place] [address] Mary Alejandro MD LAB BLOOD ORDERABLES F inal Result [facility] [address] [place] [address], [facility] CH Rem 2.0 Pathology Department [address] [place] [address] from Last 3 Months Insurance [employer] [facility]
[2024-12-03 11:00] LABS: Hematocrit 39.3 % (42.0-52.0); Hemoglobin 12.8 g/dL (14.1-18.0); Immature Granulocytes % 0.6 %; Mean Corpuscular HGB Conc 32.6 g/dL (31.8-35.4); Mean Corpuscular Hemoglobin 28.4 pg (27.0-31.2); Mean Corpuscular Volume 87.3 fl (80-94); Nucleated Red Blood Cells % 0 %; Platelet Count 250 K/mm3 (142-424); Red Blood Count 4.50 M/mm3 (4.60-6.20); Red Cell Distribution Width-SD 74.4 fL; White Blood Count 10.9 K/mm3 (4.8-10.8)
[2024-12-03 11:25] LABS: Albumin Level 3.7 g/dl (3.5-5.0); Chloride 114 mmol/L (98-107); Sodium 143 mmol/L (136-145)
[2024-12-03 11:28] LABS: Alanine Aminotransferase 11 U/L (12-78); Albumin/Globulin Ratio 1.4 (1.1-1.8); Alkaline Phosphatase 74 U/L (38-126); Anion Gap 10.9 mEq/L (5-15); Aspartate Amino Transferase 17 U/L (17-59); Bilirubin,Total 0.4 mg/dl (0.2-1.3); Blood Urea Nitrogen 17 mg/dl (9-20); Calcium 9.7 mg/dl (8.4-10.2); Carbon Dioxide 21 mmol/L (22.0-30.0); Creatinine,Serum 1.20 mg/dl (0.66-1.25); Estimated Glomerular Filt Rate 63 ml/min (>60); GFR (African American) 76 ML/MIN (>60); Globulin 2.6 g/dL (1.3-3.2); Glucose 94 mg/dl (74-100); Phosphorous 2.3 mg/dl (2.5-4.5); Total Protein,Serum 6.3 g/dl (6.3-8.2)
[2024-12-03 11:29] LABS: Magnesium 2.2 mg/dl (1.6-2.3)
[2024-12-03 11:35] LABS: Potassium 2.9 mmoL/L (3.5-5.1)
[2024-12-03 11:40] LABS: Free Thyroxine Index 2.1 ug/dL (5.93-13.13); T4 (Thyroxine) 5.8 ug/dl (5.53-11.0); Triiodothryronine (T3) Uptake 36 % (23.5-40.5)
[2024-12-03 11:54] LABS: Thyroid Stimulating Hormone 4.37 uIU/mL (0.465-4.68)
== END 2024-12-03 23:59 | disposition home or self-care (01) ==
LOC: LAB 10:21
PROVIDERS: PCP Internal Medicine Adolescent Medicine; Visit Provider Internal Medicine Adolescent Medicine
DX: E03.9 Hypothyroidism, unspecified (principal); N17.9 Acute kidney failure, unspecified; G89.3 Neoplasm related pain (acute) (chronic)
CPT/HCPCS: 36415; 80053; 83735; 84100; 84436; 84443; 84479; 85025